=== PATIENT | male | born 1940 | race Caucasian/White ===

== ENCOUNTER 2023-10-06 10:12 | Outpatient (CLI) | payer OTHER, SELFPAY | END 2023-10-06 10:13 | disposition home or self-care (01) | PROVIDERS: PCP Family Medicine; Visit Provider Family Medicine | DX: M54.16 Radiculopathy, lumbar region (principal); M51.36 Other intervertebral disc degeneration, lumbar region | CPT/HCPCS: 62323; J0702; Q9966 ==

== ENCOUNTER 2024-04-23 09:12 | Emergency (ER) | payer OTHER, SELFPAY ==
[2024-04-23 09:25] VITALS: BP 157/72; PULSE 73; RESP 18; TEMP 36.6; O2SAT 96; BMI 25.9
--- NOTE | 2024-04-23 09:43 | ED.GENADULT ---
HPI - General Adult General Time Seen by Provider: 09:43 Date Seen: 04/23/24 Chief complaint: Cough Stated complaint: Cough, congestion Time Seen by Provider: 04/23/24 09:42 Source: patient and RN notes reviewed Mode of arrival: ambulatory Limitations: no limitations History of Present Illness HPI narrative: This 83-year-old male is coming into the ER with concern of ongoing respiratory symptoms. He notes he has been sick for about 3 weeks. He has had nasal congestion cough and occasional left-sided facial numbness that comes and goes. Symptoms have been present for about 2 weeks. He thinks he has a sinus infection. He went to a different hospital 2 weeks ago, took an antibiotic but did not clear it. He does not remember what the antibiotic was. He has hip pain, chronic back pain, diabetes, COPD, bladder cancer. He has a remote history of smoking. No noted fevers or chills. His medications are reviewed. Related Data Home Medications ?Medication ?Instructions ?Recorded ?Confirmed albuterol sulfate 90 mcg/actuation 1 - 2 puff inhalation Q4H PRN 04/23/24 04/23/24 aerosol inhaler wheezing atorvastatin 40 mg tablet 40 mg PO QPM 04/23/24 04/23/24 benzonatate 100 mg capsule 100 mg PO 3XD PRN cough 04/23/24 04/23/24 buspirone 5 mg tablet 5 mg PO 3XD 04/23/24 04/23/24 finasteride 5 mg tablet 5 mg PO QAM 04/23/24 04/23/24 isosorbide mononitrate 30 mg 30 mg PO DAILY 04/23/24 04/23/24 tablet,extended release 24 hr metoprolol succinate 25 mg 25 mg PO DAILY 04/23/24 04/23/24 tablet,extended release 24 hr oxycodone 10 mg tablet mg PO 04/23/24 trazodone 100 mg tablet 100 mg PO QPM 04/23/24 04/23/24 Allergies Allergy/AdvReac Type Severity Reaction Status Date / Time Penicillins Allergy Verified 04/23/24 09:31 Review of Systems Status of ROS: Reports: 6 or more systems reviewed and unremarkable except as noted in History and below PFSH PFSH Social History Non-prescribed substance use: denies use Exam Const: Vital Signs, click to edit/add: Vital Signs - 24 hr 04/23/24 09:25 Temperature 97.8 F Pulse Rate [Right Pulse Oximeter] 73 Respiratory Rate 18 Blood Pressure [Ri ght Upper Arm] 157/72 H Pulse Oximetry 96 Oxygen Delivery Me thod Room Air This 83-year-old male is alert, interactive, no apparent distress. Pupils equal round reactive to light, sclera clear, symmetrical facial function. Speech is normal. Anterior nares normal. Neck is supple, no adenopathy, no thyromegaly masses or nodules. Lungs are clear, good air entry, no wheeze or crackles. CV regular rate and rhythm, no murmur, normal S1-S2, no S3-S4. Abdomen peers soft, nontender, no organomegaly or masses. No lower extremity edema. Patient is ambulatory into the ED using a cane. Did observe him going to the bathroom. Documenting provider has reviewed patient's vital signs: yes Course Course ED Course: Reviewed with patient that we would proceed with head CT, will be able to see majority of the sinuses on head CT imaging. Will get basic labs. Do think we should look at a chest x-ray as well. Sinusitis, respiratory infection including pneumonia will be further evaluated with the imaging. Patient is in agreement with this plan. Vital Signs Vital signs: Initial Vital Signs Temperature 97.8 F 04/23/24 09:25 Temperature Source Temporal Artery Scan 04/23/24 09:25 Pulse Rate 73 04/23/24 09:25 Respiratory Rate 18 04/23/24 09:25 Blood Pressure 157/72 H 04/23/24 09:25 Blood Pressure Mean 100 04/23/24 09:25 Blood Pressure Position Sitting 04/23/24 09:25 Pulse Oximetry 96 04/23/24 09:25 Oxygen Delivery Method Room Air 04/23/24 09:25 Vital Signs Temperature 97.8 F 04/23/24 09:25 Pulse Rate 73 04/23/24 09:25 Respiratory Rate 18 04/23/24 09:25 Blood Pressure 157/72 H 04/23/24 09:25 Pulse Oximetry 96 04/23/24 09:25 Oxygen Delivery Method Room Air 04/23/24 09:25 Temperature 97.8 F 04/23/24 09:25 Pulse Rate 73 04/23/24 09:25 Respiratory Rate 18 04/23/24 09:25 Blood Pressure 157/72 H 04/23/24 09:25 Pulse Oximetry 96 04/23/24 09:25 Oxygen Delivery Method Room Air 04/23/24 09:25 Medical Decision Making Lab Data Lab results reviewed: Yes I reviewed the patient's lab results Labs: Lab Results 04/23/24 Range/Units 10:41 WBC 5.15 (4.50-11.00) K/uL RBC 3.85 L (4.30-5.90) m/uL Hgb 12.4 L (13.5-17.5) gm/dL Hct 37.2 (37.0-53.0) % MCV 97 (80-100) fL MCH 32 (26-34) pg MCHC 33 (32-36) gm/dL RDW Coeff of Laci 12.7 (11.5-15.5) % Plt Count 169 (140-440) K/uL Neut % (Auto) 64.7 (42.0-72.0) % Lymph % (Auto) 16.7 L (20-44) % Miner % (Auto) 15.1 H (0.0-11.0) % Eos % (Auto) 2.3 (0.0-7.0) % Baso % (Auto) 1.0 (0.0-3.0) % Neut # (Auto) 3.33 (1.7-7.0) K/uL Lymph # (Auto) 0.90 (0.90-2.90) K/uL Miner # (Auto) 0.80 (0.00-0.90) K/UL Eos # (Auto) 0.12 (0.00-0.50) K/uL Baso # (Auto) 0.05 (0.00-0.30) K/uL Abs Immat Gran (auto) 0.01 (0.00-0.30) K/uL Imm/Tot Granulo (auto) 0.2 % Sodium 138 (135-149) mmol/L Potassium 4.2 (3.6-5.1) mmol/L Chloride 108 (96-114) mmol/L Carbon Dioxide 24 (20-32) mmol/L Anion Gap 6 L (7-15) mEq/L BUN 14 (7-30) mg/dL Creatinine 1.0 (0.5-1.5) mg/dL Estimated Creat Clear 60.66 Estimated GFR 75 ml/min Glucose 112 (60-115) mg/dL Calcium 8.8 (8.4-10.6) mg/dL C-Reactive Protein < 0.5 L (0.5-1.0) mg/dL Imaging Data CT scan - head: Attestation: I have reviewed the pertinent imaging results. Radiologist's impression: Patient: [facility] Facility:?[facility] Patient ID:?[id number] Site Patient ID:?[id number]. Site :?[id number] Study:?CT-Head WITHOUT-04/23/2024 10:20:26 AM Ordering Physician:Senait Santos Final Report: Indication: Headache intermittent left facial numbness Technique: Noncontrast head CT Comparison: No comparison Findings: Mild generalized parenchymal volume loss periventricular hypo lucencies likely reflecting chronic small vessel ischemic change. Axial noncontrast images through the brain parenchyma demonstrates no acute intracranial hemorrhage or mass. No midline shift. No abnormal extra-axial air or fluid collections are seen. Possible left posterior scalp contusion skull and scalp are otherwise unremarkable. Impression: No acute intracranial hemorrhage or mass. Possible left posterior scalp contusion Left facial numbness Please note that all CT scans at this facility use dose modulation, iterative reconstruction, and/or weight-based dosing when appropriate to reduce radiation dose to as low as reasonably achievable. Dictated by Rosette Kumari MD @ 04/23/2024 10:35:39 AM (Electronic Signature) Chest x-ray: Attestation: I have reviewed the pertinent imaging results. Radiologist's impression: Patient: [facility] Facility:?[facility] Patient ID:?[id number] Site Patient ID:?[id number]. Site :?[id number] Study:?XRay-Chest 2 VIEW-04/23/2024 10:21:41 AM Ordering Physician:Senait Santos Final Report: INDICATION: Cough. TECHNIQUE: Chest 2 views. COMPARISON: 10/03/2014. FINDINGS: No pneumothorax or pleural effusion. Lungs are clear. Median sternotomy and CABG. Aortic atherosclerosis. Cardiac and mediastinal contours are within normal limits. Upper abdomen and osseous structures as imaged show no acute abnormality. IMPRESSION: No evidence of acute cardiopulmonary disease. Dictated by Randy Brooke MD @ 04/23/2024 10:35:05 AM (Electronic Signature) Discharge Plan Discharge Clinical Impression: Cough Qualifiers: Cough type: unspecified Qualified Code(s): R05.9 - Cough, unspecified Patient Disposition: Home, Self-Care Condition: Stable Instructions: Acute Cough (ED) Additional Instructions: Need to follow-up with your primary care provider within the next week for recheck. Your sinuses appear clear, head CT showing no concerning change on it, chest x-ray was clear. Labs are all reassuring. Antibiotics are not indicated. She after respiratory infections, whether viral or bacterial, patients can have underlying damage from these infections that just take time to heal. This can cause the coughing and the respiratory symptoms that linger. I would anticipate that your cough and symptoms improve over the weeks to come. If you do develop worsening cough, fever, shortness of breath or other concerns, do recommend re-evaluation. Activity Level: Activity as Tolerated Prescriptions: No Action atorvastatin 40 mg tablet 40 mg PO QPM buspirone 5 mg tablet 5 mg PO 3XD isosorbide mononitrate 30 mg tablet extended release 24 hr 30 mg PO DAILY trazodone 100 mg tablet 100 mg PO QPM benzonatate 100 mg capsule 100 mg PO 3XD PRN (Reason: cough) metoprolol succinate 25 mg tablet extended release 24 hr 25 mg PO DAILY albuterol sulfate 90 mcg/actuation HFA aerosol inhaler 1 - 2 puff INHALATION Q4H PRN (Reason: wheezing) finasteride 5 mg tablet 5 mg PO QAM oxycodone 10 mg tablet PO Follow Up/Referrals: Saqib Horowitz MD [Primary Care Provider] - Stand Alone Forms: [employer] Info Instructions
--- NOTE | 2024-04-23 09:54 | CRLHL7_ITS ---
For Patients: As a result of the Cures Act, medical imaging exams and procedure reports are released immediately into your electronic medical record. You may view this report before your referring provider. If you have questions, please contact your health care provider. INDICATION: Cough. TECHNIQUE: Chest 2 views. COMPARISON: 10/03/2014. FINDINGS: No pneumothorax or pleural effusion. Lungs are clear. Median sternotomy and CABG. Aortic atherosclerosis. Cardiac and mediastinal contours are within normal limits. Upper abdomen and osseous structures as imaged show no acute abnormality. IMPRESSION: No evidence of acute cardiopulmonary disease. Dictated by Randy Brooke MD @ 04/23/2024 10:35:05 AM (Electronically Signed)
--- NOTE | 2024-04-23 09:54 | CRLHL7_ITS ---
For Patients: As a result of the Century Cures Act, medical imaging exams and procedure reports are released immediately into your electronic medical record. You may view this report before your referring provider. If you have questions, please contact your health care provider. Indication: Headache intermittent left facial numbness Technique: Noncontrast head CT Comparison: No comparison Findings: Mild generalized parenchymal volume loss periventricular hypo lucencies likely reflecting chronic small vessel ischemic change. Axial noncontrast images through the brain parenchyma demonstrates no acute intracranial hemorrhage or mass. No midline shift. No abnormal extra-axial air or fluid collections are seen. Possible left posterior scalp contusion skull and scalp are otherwise unremarkable. Impression: No acute intracranial hemorrhage or mass. Possible left posterior scalp contusion Left facial numbness Please note that all CT scans at this facility use dose modulation, iterative reconstruction, and/or weight-based dosing when appropriate to reduce radiation dose to as low as reasonably achievable. Dictated by Rosette Kumari MD @ 04/23/2024 10:35:39 AM (Electronically Signed)
--- OUTSIDE RECORDS SUMMARY | 2024-04-23 10:01 | XMS_ITS | Continuity of Care Document ---
Author Organization [facility] Address [address] [address] [place] [address] Phone Care Team Providers Care Electroneurodiagnostic Technician Name Role Phone Salima Castle MD Unavailable Unavailable Procedures Procedure Date Init Inpt Cons New/est Mod-hi 2 Advance Directives Directive Yes / No Effective Date File Name No Information Encounters Encounter Description Practice Location Reason(s) For Visit Diagnoses Date Provider Providers Copied on Encounter [facility], [address] [address], [place], [place], [id number], [place] tel:[phone] [facility] No Information Tin Borrego. [address] [address], [place], [place], [id number], [place]. tel:[phone] Init Inpt [place] New/est Mod-hi [facility], [address] [address], [place], [place], [id number], [place] tel:[phone] [facility] No Information Tin Borrego. [address], [id number], [place]. tel:[phone] Referring Provider: Randy Granda, [facility] [place], [address]. tel:[phone] Family History Family Member Type Diagnosis Age At Onset No Information Payers Payer name Insurance type Covered alliance party ID Authoriza tion(s) No Information Social History Type Description Quantity Date Captured Comments Sex Male Smoking Status No Information Chief Complaint And Reason For Visit No Information Reason For Referral Reason For Referral No Information History Of Present Illness Encounter Date Complaint History Of Prese nt Illness No Information Functional Status Date Functional Assessmen t No Information Instructions Date Instruction Additional Infor mation No Information Assessments Type Assessment Date No Information Patient Care Teams Name Effective Dates (start - stop) Status Members No Information
--- OUTSIDE RECORDS SUMMARY | 2024-04-23 10:01 | XMS_ITS | Continuity of Care Document ---
Author Organization [facility] Address [address] [place] [address] Phone Care Team Providers Care Clock Maker Name Role Phone Neo Watt MD Unavailable Unavailable Procedures Procedure Date Office/outpatient visit,est, low 2006 Office/outpatient visit,est, low 2006 Office/outpatient visit,est, low 2006 X-ray exam lwr spine, min 4 views Advance Directives Directive Yes / No Effective Date File Name No Information Encounters Encounter Description Practice Location Reason(s) For Visit Diagnoses Date Provider Providers Copied on Encounter [facility], [address] [place] [address], [facility], tel:[phone] [employer] No Information Shukri Larson. [facility], [address] [place] [address], [address], [place], [place], [id number] , . tel:[phone] Office/outpat ient visit,est, low [facility], [address] [place], [place] [address], [place], [place], [facility], tel:[phone] [employer] No Information Mely Ellis. [facility], [address], [place], [id number] , . tel:[phone] Referring Provider: Caleb Boone, [facility] [address], [place], [address] . tel:[phone] Office/outpat ient visit,est, low [facility], [address], [place], [place], [facility], tel:[phone] [employer] No Information Mely [facility], [address], [place], [place], [id number] , . tel:[phone] Referring Provider: Caleb Boone, [facility] [address] [place] [address] [address], [place], [address] . tel:[phone] Office/outpat ient visit,est, low [facility], [address] [place], [place] [address], [place], [facility], tel:[phone] [employer] No Information Mely [facility], [address], [place], [place], [id number] , . tel:[phone] Referring Provider: Caleb Boone, [facility] [address], [place], [address] . tel:[phone] Family History Family Member Type Diagnosis Age At Onset No Information Payers Payer name Insurance type Covered constitution party ID Authoriza tion(s) No Information Social [...]
--- OUTSIDE RECORDS SUMMARY | 2024-04-23 10:01 | XMS_ITS | Data Portability ---
Author Organization [facility] Address [address] [place] [address] Care Team Providers Care [employer] Name Role Phone [facility] Primary Care Provider Assessment No assessment recorded. Plan of Treatment Reminders Order Date Submit Date Provider Last Modified By Organization Details Last Modified Time Details Appointments None recorded. Lab urinalysis , dipstick 2022 023 [email or web address] [facility], [address], [place], [address], 3 17:36:45 culture, urine 2022 023 [facility], [address], [address], [place], [address], 3 12:19:57 urinalysis , dipstick 2022 023 [email or web address] [facility], [address], [place], [address], 3 13:03:33 urinalysis , dipstick 2022 023 [email or web address] [facility], [address], [place], [address], 3 11:59:30 prostate specific Ag, serum or plasma 2023 024 [facility], [address], [address], [place], [address], 4 11:55:21 urinalysis , dipstick 2023 024 [email or web address] [facility], [address], [place], [address], 4 13:56:05 culture, urine 2023 024 [facility], [address], [address], [place], [address], 11:40:13 Referral None recorded. Procedures cystoscopy (PROC) 2023 024 [email or web address] Not available 10:21:32 Surgeries None recorded. Imaging None recorded. Medication Orders None recorded. Patient TargetsNo targets recorded. Patient Instructions Encounter Date Encounter Id Patient Instructions Last Modified By Organization Details Last Modified Time 11/20/2022 [id number] Return next week for his next instillation [email or web address] Not available 11/20/2022 17:43:09 12/04/2022 [id number] Patient to follo w up next week for next instillation [email or web address] Not available 12/04/2022 13:06:27 12/11/2022 [id number] Patient to retur n next week for BCG #6 [email or web address] Not available 12/11/2022 11:59:55 Reason for Referral None Reported. Results Created Date Observation Date Name Description Value Unit Range Abnormal Flag Note LastModifiedBy Organization Detail LastModifiedTime 11/07/1911/06/2022 urina lysis , dipst ick pH-Status 5.5 Not Available [facility] [address], [place], [address], 11/06/2022 12:07:11 11/07/19 23 11/06/2022 urina lysis , dipst ick Nitrates-Sta tus negati ve Not Available [facility] [address], [place], [address], 11/06/2022 12:07:11 11/07/19 23 11/06/2022 urina lysis , dipst ick Blood-Status Large Not Available [facility] [address], [place], [address], 11/06/2022 12:07:11 11/07/19 23 11/06/2022 urina lysis , dipst ick Leuko-Status Small Not Available [facility] [address], [place], [address], 11/06/2022 12:07:11 11/07/19 23 11/06/2022 urina lysis , dipst ick Specimen Type Voided Not Available [facility] [address], [place], [address], 11/06/2022 12:07:11 11/14/19 23 11/13/2022 urina lysis , dipst ick pH-Status 5.5 Not Available [facility] [address], [place], [address], 11/13/2022 11:49:27 11/14/19 23 11/13/2022 urina lysis , dipst ick Nitrates-Sta tus negati ve Not Available [facility] [address], [place], [address], 11/13/2022 11:49:27 11/14/19 23 11/13/2022 urina lysis , dipst ick Blood-Status Trace Not Available [facility] [address], [place], [address], 11/13/2022 11:49:27 11/14/19 23 11/13/2022 urina lysis , dipst ick Leuko-Status Small Not Available [facility] [address], [place], [address], 11/13/2022 11:49:27 11/14/19 23 11/13/2022 urina lysis , dipst ick Specimen Type Voided Not Available [facility] [address], [place], [address], 11/13/2022 11:49:27 11/21/19 23 11/20/2022 urina lysis , dipst ick Blood-Status Large Not Available [facility] [address], [place], [address], 11/20/2022 17:34:52 11/21/19 23 11/20/2022 urina lysis , dipst ick Leuko-Status Small Not Available [facility] [address], [place], [address], 11/20/2022 17:34:52 12/05/19 23 12/04/2022 URINE CULTU RE final report MICROB IOLOGY RESULT S SOURC E Void KNOWN ALLER GIES Penic illin s TREAT MENT none MEDIA PLATE D AT: Media plate d on 023 @ 5:15 PM RESUL T No Growt h This lab resul t is being provi ded to you and your provi barbara at the same time in compl iance with the Centu ry Cures Act. Your provi barbara may not have had time to revie w and make recom menda tions based on the resul t. Pleas e allow up to one week for provi barbara revie w. Not Available [facility] [address], [place], [address], 12/06/2022 12:19:57 12/05/19 23 12/04/2022 urina lysis , dipst ick Glucose-Stat us 100 Not Available [facility] [address], [place], [address], 12/04/2022 12:59:43 12/05/19 23 12/04/2022 urina lysis , dipst ick Bilirubin-St atus Small Not Available [facility] [address], [place], [address], 12/04/2022 12:59:43 12/05/19 23 12/04/2022 urina lysis , dipst ick Ketones-Stat us 5 Not Available [facility] [address], [place], [address], 12/04/2022 12:59:43 12/05/19 23 12/04/2022 urina lysis , dipst ick Protein-Stat us >=9.0 Not Available [facility] [address], [place], [address], 12/04/2022 12:59:43 12/05/19 23 12/04/2022 urina lysis , dipst ick Blood-Status Large Not Available [facility] [address], [place], [address], 12/04/2022 12:59:43 12/05/19 23 12/04/2022 urina lysis , dipst ick Leuko-Status Trace Not Available [facility] [address], [place], [address], 12/04/2022 12:59:43 12/12/19 23 12/11/2022 urina lysis , dipst ick Color-Status Yellow Not Available [facility] [address], [place], [address], 12/11/2022 11:56:24 12/12/19 23 12/11/2022 urina lysis , dipst ick Clarity-Stat us Clear Not Available [facility] [address], [place], [address], 12/11/2022 11:56:24 12/12/19 23 12/11/2022 urina lysis , dipst ick Glucose-Stat us Negati ve Not Available [facility] [address], [place], [address], 12/11/2022 11:56:24 12/12/19 23 12/11/2022 urina lysis , dipst ick Bilirubin-St atus Negati ve Not Available [facility] [address], [place], [address], 12/11/2022 11:56:24 12/12/19 23 12/11/2022 urina lysis , dipst ick Ketones-Stat us Negati ve Not Available [facility] [address], [place], [address], 12/11/2022 11:56:24 12/12/19 23 12/11/2022 urina lysis , dipst ick Sp [place]-Stat us 1.020 Not Available [facility] [address], [place], [address], 12/11/2022 11:56:24 12/12/19 23 12/11/2022 urina lysis , dipst ick pH-Status 5.5 Not Available [facility] [address], [place], [address], 12/11/2022 11:56:24 12/12/19 23 12/11/2022 urina lysis , dipst ick Urobilinogen -Status 0.2 Not Available [facility] [address], [place], [address], 12/11/2022 11:56:24 12/12/19 23 12/11/2022 urina lysis , dipst ick Nitrates-Sta tus negati ve Not Available [facility] [address], [place], [address], 12/11/2022 11:56:24 12/12/19 23 12/11/2022 urina lysis , dipst ick Blood-Status Large Not Available [facility] [address], [place], [address], 12/11/2022 11:56:24 12/12/19 23 12/11/2022 urina lysis , dipst ick Leuko-Status Small Not Available [facility] [address], [place], [address], 12/11/2022 11:56:24 12/12/19 23 12/11/2022 urina lysis , dipst ick Specimen Type Voided Not Available [facility] [address], [place], [address], 12/11/2022 11:56:24 12/12/19 23 12/11/2022 urina lysis , dipst ick Performed by Marcos willson RN Not Available [facility] [address], [place], [address], 12/11/2022 11:56:24 12/19/19 23 12/18/2022 URINE CULTU RE final report MICROB IOLOGY RESULT S SOURC E Void KNOWN ALLER GIES penic illin TREAT MENT none MEDIA PLATE D AT: Media plate d on 2022 @ 4:24 PM COLON Y COUNT 10,00 0 cfu/m l-20, 000 cfu/m l RESUL T Mixed Growt h,Mul tiple Gram Posit roldan Morph ologi c Types ,No Furth er Carl p This lab resul t is being provi ded to you and your provi barbara at the same time in compl iance with the Centu ry Cures Act. Your provi barbara may not have had time to revie w and make recom menda tions based on the resul t. Katarina e allow up to one week for provi barbara revie w. Not Available [facility] [address], [place], [address], 12/20/2022 11:23:09 12/19/19 23 12/18/2022 urina lysis , dipst ick Color-Status Mimbres Not Available [facility] [address], [place], [address], 12/18/2022 13:03:00 12/19/19 23 12/18/2022 urina lysis , dipst ick Clarity-Stat us Clear Not Available [facility] [address], [place], [address], 12/18/2022 13:03:00 12/19/19 23 12/18/2022 urina lysis , dipst ick Glucose-Stat us Negati ve Not Available [facility] [address], [place], [address], 12/18/2022 13:03:00 12/19/19 23 12/18/2022 urina lysis , dipst ick Bilirubin-St atus Small Not Available [facility] [address], [place], [address], 12/18/2022 13:03:00 12/19/19 23 12/18/2022 urina lysis , dipst ick Sp [place]-Stat us 1.025 Not Available [facility] [address], [place], [address], 12/18/2022 13:03:00 12/19/19 23 12/18/2022 urina lysis , dipst ick pH-Status 5.0 Not Available [facility] [address], [place], [address], 12/18/2022 13:03:00 12/19/19 23 12/18/2022 urina lysis , dipst ick Urobilinogen -Status 0.2 Not Available [facility] [address], [place], [address], 12/18/2022 13:03:00 12/19/19 23 12/18/2022 urina lysis , dipst ick Nitrates-Sta tus positi ve Not Available [facility] [address], [place], [address], 12/18/2022 13:03:00 12/19/19 23 12/18/2022 urina lysis , dipst ick Blood-Status Large Not Available [facility] [address], [place], [address], 12/18/2022 13:03:00 12/19/19 23 12/18/2022 urina lysis , dipst ick Leuko-Status Small Not Available [facility] [address], [place], [address], 12/18/2022 13:03:00 12/19/19 23 12/18/2022 urina lysis , dipst ick Specimen Type Voided Not Available [facility] [address], [place], [address], 12/18/2022 13:03:00 12/19/19 23 12/18/2022 urina lysis , dipst ick Performed by Marcos willson RN Not Available [facility] [address], [place], [address], 12/18/2022 13:03:00 10/19/19 24 10/19/2023 PSA, TOTAL , SCREE N PSA, total 0.72 NG/mL 0.00-4 .00 This lab resul t is being provi ded to you and your provi barbara at the same time in compl iance with the 21st Centu ry Cures Act. Your provi barbara may not have had time to revie w and make recom menda tions based on the resul t. Katarina sandy allow up to one week for provi barbara revie w. Not Available [facility] [address], [place], [address], 10/20/2023 11:55:21 10/19/19 24 10/19/2023 URINE CULTU RE final report MICROB IOLOGY RESULT S SOURC E Void KNOWN ALLER GIES penic illin TREAT MENT none MEDIA PLATE D AT: Media plate d on 2023 @ 4:02 PM RESUL T No Growt h This lab resul t is being provi ded to you and your provi barbara at the same time in compl iance with the Centu ry Cures Act. Your provi barbara may not have had time to revie w and make recom menda tions based on the resul t. Pleas e allow up to one week for provi barbara revie w. Not Available [facility] [address], [place], [address], 10/21/2023 11:40:13 10/19/19 24 10/19/2023 urina lysis , dipst ick Color-Status Yellow Not Available [facility] [address], [place], [address], 10/19/2023 12:37:34 10/19/19 24 10/19/2023 urina lysis , dipst ick pH-Status 5.5 Not Available [facility] [address], [place], [address], 10/19/2023 12:37:34 10/19/19 24 10/19/2023 urina lysis , dipst ick Nitrates-Sta tus negati ve Not Available [facility] [address], [place], [address], 10/19/2023 12:37:34 10/19/19 24 10/19/2023 urina lysis , dipst ick Blood-Status Negati ve Not Available [facility] [address], [place], [address], 10/19/2023 12:37:34 10/19/19 24 10/19/2023 urina lysis , dipst ick Leuko-Status Trace Not Available [facility] [address], [place], [address], 10/19/2023 12:37:34 Result Notes None recorded. Problems Name Problem SNOMED Code Status Onset Date Resolution Date Notes Provider Name and Address Organization Details Recorded Time Malignant neoplasm of urinary bladder 678057099 Active 020 Omayra Sosa lelo, [facility] 16:10:32 Problem Notes None recorded. Procedures Surgical History Date Name Laterality Status Provider Name and Address Organization Details Recorded Time 03/30/20 24 [facility]Kylee [facility]oll[facility] 03/21/2024 16:34:13 03/30/20 24 Sulfa post Cysto active [facility] JasonMargarito hollins [facility] 03/21/2024 16:34:15 03/30/20 24 Cytology active [facility]e [facility] 03/21/2024 16:34:45 03/30/20 24 Blood Draw/PICKUP DRIVER/PSA RESULTS active [facility] JasonMargarito hollins [facility] 03/21/2024 16:35:01 10/19/19 24 Cystoscopy- male completed Cesar Daly MD [address], [place], [address], [facility] 10/19/2023 13:54:02 10/19/19 24 Sulfa post Cysto completed Huyen Santos [facility] 10/19/2023 12:39:22 12/19/19 23 BCG Full Dose Tx 50mg cancelled Becky Hinojosa [facility] 12/18/2022 13:02:55 12/12/19 23 BCG Full Dose Tx 50mg completed Becky Hinojosa [facility] 12/11/2022 11:56:17 12/05/19 23 BCG Full Dose Tx 50mg completed Clarice Naranjo [facility] 12/04/2022 12:59:37 11/21/19 23 BCG Full Dose Tx 50mg completed Clarice Nraanjo [facility] 11/20/2022 17:40:06 11/14/19 23 BCG Full Dose Tx 50mg completed [facility] 11/13/2022 11:49:12 11/07/19 23 BCG Full Dose Tx 50mg completed Ely Stratton [facility] 11/06/2022 12:06:58 09/23/19 23 Bladder Scan completed Sera Crowley [facility] 09/23/2022 13:50:56 07/03/20 20 Cystoscopy- male completed Cesar Daly MD [address] [place] [address],[address], [address], [facility] 07/05/2020 09:10:35 05/17/20 20 BCG Full Dose Tx 50mg completed Vic Kwok [facility] 05/17/2020 12:35:47 05/10/20 20 BCG Full Dose Tx 50mg completed Vic Kwok [facility] 05/10/2020 12:33:48 05/03/20 20 BCG Full Dose Tx 50mg completed Vic Kwok [facility] 05/03/2020 12:41:30 04/26/20 20 BCG Full Dose Tx 50mg completed Vic Kwok [facility] 04/26/2020 12:46:29 04/19/20 20 BCG Full Dose Tx 50mg completed Vic Kwok [facility] 04/19/2020 13:19:52 04/12/20 20 BCG Full Dose Tx 50mg completed Omayra Sosa [facility] 04/12/2020 16:15:22 08/03/19 12 Colonoscopy completed Cesar Daly MD [address] [place] [address],[address], [address], [facility] 07/03/2020 15:50:00 procedure on urinary bladder completed Robb Gomez [facility] 07/03/2020 15:28:56 operation on lumbar spine completed Cesar Daly MD [address] [place] [address],[address], [address], [facility] 07/03/2020 15:50:12 complete repair of rotator cuff completed Cesar Daly MD [address] [place] [address],[address], [address], [facility] 07/03/2020 15:50:30 Imaging Results None recorded. Procedure Notes None recorded. Medical Equipment None Reported. Allergies Allergen ID Allergen Name Allergen Category Reaction Reaction Severity Criticality Documentation Date Start Date Code Code System Note Provider Name and Address Organization Details Recorded Time 427862 Medicinal product containin g penicilli n and acting as antibacte rial agent (product) medicatio n Not available Not available Not available 07/03/2020 99622 05 SNOMED Cesar Daly MD [address] [place] [address], [address], [facility] 0 15:51:47 Medications Name Sig Start Date Stop Date Status Note LastModified by Organization Details LastModified Time depend undr lg/xl mis kimb FOR HOME USE NEEDED* active Not Available Not Available No t Available hpa lanolin cre lans Apply topically to affected area(s) each time if needed for Dry Skin. active Not Available Not Available No t Available dep fit-flex mis large active Not Available Not Available No t Available cyclobenzap rine 10 mg tablet TAKE ONE TABLET BY MOUTH THREE TIMES DAILY NEEDED FOR MUSCLE SPASM* active Not Available Not Available No t Available atorvastati n 40 mg tablet TAKE 1 TABLET BY MOUTH AT BEDTIME* active Not Available Not Available No t Available buspirone 5 mg tablet TAKE ONE TABLET BY MOUTH THREE TIMES DAILY* active Not Available Not Available No t Available triamcinolo ne acetonide 0.5 % topical cream Apply topically to affected area(s) three times daily* active Not Available Not Available No t Available tizanidine 4 mg tablet TAKE ONE TABLET BY MOUTH EVERY EIGHT HOURS NEEDED FOR MUSCLE SPASM 10/15 completed Not Available Not Available Not Available sulfamethox azole 400 mg-trimetho prim 80 mg tablet TAKE 1 TABLET BY MOUTH EVERY 12 HOURS FOR 14 DAYS 08/20 completed Not Available Not Available Not Available phenazopyri dine 200 mg tablet TAKE ONE TABLET BY MOUTH THREE TIMES DAILY AFTER MEALS FOR 3 DAYS 10/15 completed Not Available Not Available Not Available isosorbide mononitrate ER 30 mg tablet,exte nded release 24 hr TAKE 1 TABLET BY MOUTH ONE TIME DAILY, DO NOT TAKE IF SYSTOLIC BLOOD PRESSURE IS LESS THAN 110* active Not Available Not Available No t Available clobetasol 0.05 % topical cream Apply (1.5gm) to affected areas on chest and back twice daily for 2 weeks.Channing e 2 weeks off. Repeat until resolved. * active Not Available Not Available No t Available ciprofloxac in 500 mg tablet TAKE 1 TABLET BY MOUTH EVERY 12 HOURS FOR 14 DAYS 08/20 completed Not Available Not Available Not Available sulfamethox azole 800 mg-trimetho prim 160 mg tablet Take 1 Tablet by mouth one time for 1 dose. 08/20 completed Not Available Not Available Not Available omeprazole 40 mg capsule,del ayed release TAKE 1 CAPSULE BY MOUTH TWICE DAILY 30-60 MINUTES BEFORE A MEAL/FOOD .* active Not Available Not Available No t Available ketorolac 0.5 % eye drops INSTILL ONE DROP INTO RIGHT EYE FOUR TIMES DAILY; START 4 HOURS AFTER SURGERY, USE UNTIL GONE, DON'T EXCEED 3 WEEKS 08/20 completed Not Available Not Available Not Available oxycodone-a cetaminophe n 5 mg-325 mg tablet TAKE ONE TABLET BY MOUTH EVERY SIX HOURS NEEDED FOR PAIN, MAX ACETAMINO PHEN DOSE IS 4,000MG IN 24 HOURS active Not Available Not Available No t Available famotidine 20 mg tablet Take 1 tablet by mouth 2 times daily. 10/15 completed Not Available Not Available Not Available prednisolon e acetate 1 % eye drops,suspe nsion INSTILL ONE DROP INTO RIGHT EYE FOUR TIMES DAILY; START 4 HOURS AFTER SURGERY, USE UNTIL GONE, DON'T EXCEED 3 WEEKS 08/20 completed Not Available Not Available Not Available DOK 100 mg capsule 10/15 completed Not Available Not Available Not Available tamsulosin 0.4 mg capsule Take 1 Capsule by mouth once daily after a meal.* active Not Available Not Available No t Available trazodone 100 mg tablet TAKE 1 TABLET BY MOUTH AT BEDTIME* active Not Available Not Available No t Available carboxymeth ylcellulose sodium 0.5 % eye drops INSTILL ONE DROP INTO BOTH EYES FOUR TIMES DAILY* active Not Available Not Available No t Available phenazopyri dine 100 mg tablet TAKE ONE TABLET BY MOUTH EVERY EIGHT HOURS NEEDED* active Not Available Not Available No t Available benzonatate 100 mg capsule TAKE ONE CAPSULE BY MOUTH THREE TIMES DAILY NEEDED FOR COUGH* active Not Available Not Available No t Available cephalexin 500 mg capsule Take 1 Capsule (500 mg) by mouth three times daily for 10 days. 10/15 completed Not Available Not Available Not Available pantoprazol e 40 mg tablet,benedicto yed release active Not Available Not Available Not Available ranitidine 150 mg tablet 10/15 completed Not Available Not Available Not Available nitroglycer in 0.[address] 1 TABLET UNDER THE TONGUE EVERY 5 MINUTES IF NEEDED FOR CHEST PAIN. IF NO RELIEF AFTER 3 DOSES, SEEK IMMEDIATE MEDICAL ATTENTION .* active Not Available Not Available No t Available gabapentin 100 mg capsule take 1 capsule by mouth every morning & 2 capsules every evening* active Not Available Not Available No t Available metoprolol succinate ER 25 mg tablet,exte nded release 24 hr TAKE 1 TABLET BY MOUTH ONE TIME DAILY* active Not Available Not Available No t Available loteprednol etabonate 0.5 % eye drops,suspe nsion INSTILL ONE DROP INTO EACH EYE THREE TIMES A DAY 10/15 completed Not Available Not Available Not Available cefuroxime axetil 500 mg tablet 08/20 completed Not Available Not Available Not Available polyethylen e glycol 3350 17 gram/dose oral powder active Not Available Not Available Not Available methylpredn isolone 4 mg tablets in a dose pack 08/20 completed Not Available Not Available Not Available cefdinir 300 mg capsule TAKE 1 CAPSULE BY MOUTH TWICE DAILY FOR 7 DAYS 08/20 completed Not Available Not Available Not Available clotrimazol e 1 % topical cream 10/15 completed Not Available Not Available Not Available finasteride 5 mg tablet TAKE ONE TABLET BY MOUTH EVERY MORNING* active Not Available Not Available No t Available brimonidine 0.15 % eye drops 10/15 completed Not Available Not Available Not Available loratadine 10 mg tablet TAKE 1 TABLET BY MOUTH ONE TIME DAILY* active Not Available Not Available No t Available trospium 20 mg tablet TAKE ONE TABLET BY MOUTH TWICE DAILY BEFORE MEALS active Not Available Not Available No t Available lactulose 10 gram/15 mL oral solution active Not Available Not Available Not Available Pharbetol 325 mg tablet TAKE ONE OR TWO TABLETS BY MOUTH EVERY SIX HOURS NEEDED FOR PAIN* active Not Available Not Available No t Available olopatadine 0.2 % eye drops 10/15 completed Not Available Not Available Not Available FeroSul 325 mg (65 mg iron) tablet TAKE ONE TABLET BY MOUTH TWICE A DAY WITH MEALS* active Not Available Not Available No t Available oxycodone 10 mg tablet TAKE 1 TO 1^ TABLETS BY MOUTH EVERY 4 HOURS IF NEEDED FOR PAIN* active Not Available Not Available No t Available Depend Underwear For Women Large USE AT HOME NEEDED* active Not Available Not Available No t Available gatifloxaci n 0.5 % eye drops INSTILL ONE DROP INTO RIGHT EYE FOUR TIMES DAILY; START 4 HOURS AFTER SURGERY, USE UNTIL GONE, DON'T EXCEED 3 WEEKS 08/20 completed Not Available Not Available Not Available OneTouch Verio test strips USE ONE STRIP TO TEST ONCE DAILY 10/15 completed Not Available Not Available Not Available Enemeez 283 mg/5 mL enema active Not Available Not Available Not Available Stimulant Laxative Plus 8.6 mg-50 mg tablet TAKE 2 TABLETS BY MOUTH TWICE DAILY* active Not Available Not Available No t Available Refresh Optive Jerry-3 (PF) 0.5 %-1 %-0.5 % eye drops in a dropperette INSTILL 1 DROP INTO BOTH EYES 4 TIMES DAILY 10/15 completed Not Available Not Available Not Available Fluad 2018- 65yr up(PF)45 mcg(15 mcgx3)/0.5 mL intramuscul ar syringe 10/15 completed Not Available Not Available Not Available Flublok Quad (PF) 180 mcg (45 mcg x 4)/0.5 mL IM syringe 10/15 completed Not Available Not Available Not Available Flowflex COVID-19 Antigen Home Test kit ADMINISTE R ONE TEST 10/15 completed Not Available Not Available Not Available Vitals Date Recorded Body height Provider Name an d Address Organization Details Last Updated DateTime 12/11/2022 177.8 cm eBcky Hinojosa [facility] 12/11/2022 11:54:45 Date Recorded Body height Provider Name an d Address Organization Details Last Updated DateTime 12/18/2022 177.8 cm Becky Hinojosa [facility] 12/18/2022 13:01:28 Date Recorded Body height Body mass index (BMI) Body weight Provider Name and Address Organization Details Last Updated DateTime 10/19/2023 177.8 cm 25.8 kg/m2 44203.63 g Huyen Santos [facility] 10/19/2023 12:36:29 Social History Question Answer Notes LastModified by Organizat ion Details LastModified Time Tobacco Smoking Status Former Smoker quit in Cesar Daly MD [address] [place] [address],[address], [address], [facility] 07/03/2020 15:50:45 What Was The Date Of Your Most Recent Tobacco Screening? 10/19/2023 [email or web address] Information not available 10/19/2023 Sex: Unknown Functional Status None recorded. Mental Status None recorded. Family History Relationship Description Onset Age of this Age Resolved Age Notes LastModified by Organization Details LastModified Time Father Family history of diabetes mellitus [email or web address] Not available 2019 15:50:59 Father Family history of cardiac disorder [email or web address] Not available 2019 15:51:06 Medical History Condition Response Other Y High Blood Pressure Y Cancer Y High Cholesterol Y Immunizations Vaccine Type Date Status Provider Name and Address Organization Details Recorded Time Influenza, high-dose, quadrivalent, PF [facility]03[facility]23 [facility] 12:36:35 COVID-19, mRNA, LNP-S, bivalent, PF, 50 mcg/0.5 mL or 25mcg/0.25 mL dose 10/21/2022 [facility]23 12:36:35 RSV, recombinant, protein subunit RSVpreF, adjuvant reconstituted, 0.5 mL, PF 04/24/2023 [facility]23 12:36:35 COVID-19, mRNA, LNP-S, PF, 50 mcg/0.5 mL 08/06/2023 [facility] 12:36:35 Pneumococcal conjugate PCV 13 06/26/2015 completed Cesar Daly MD [address] [place] [address],[address], [address], [facility] 10/15/2022 11:32:51 pneumococcal polysaccharide PPV23 11/05/2009 completed Cesar Daly MD [address] [place] [address],[address], [address], [facility] 10/15/2022 11:32:51 Influenza, adjuvanted, trivalent, PF 04/18/2019 completed Mona Brako null, [facility] 03/06/2023 10:01:31 Influenza, adjuvanted, trivalent, PF 04/22/2017 completed Mona Brako null, [facility] 03/06/2023 10:01:31 Influenza, recombinant, quadrivalent, PF 05/07/2020 completed Mona Brako null, [facility] 03/06/2023 10:01:31 zoster recombinant 09/28/2018 completed Mona Brako null, [facility] 03/06/2023 10:01:31 zoster recombinant 01/03/2019 completed Mona Brako null, [facility] 03/06/2023 10:01:31 Influenza, high-dose, quadrivalent, PF 05/20/2022 completed Mona Brako null, [facility] 03/06/2023 10:01:31 Influenza, adjuvanted, quadrivalent, PF 05/08/2021 completed Mona Brako null, [facility] 03/06/2023 10:01:31 COVID-19, mRNA, LNP-S, PF, 100 mcg/0.5mL dose or 50 mcg/0.25mL dose 09/27/2020 completed Monagayathri Ruizko null, [facility] 03/06/2023 10:01:31 COVID-19, mRNA, LNP-S, PF, 100 mcg/0.5mL dose or 50 mcg/0.25mL dose 10/26/2020 completed Mona Sarako null, [facility] 03/06/2023 10:01:31 COVID-19, mRNA, LNP-S, PF, 100 mcg/0.5mL dose or 50 mcg/0.25mL dose 11/15/2021 completed Mona Sarako null, [facility] 03/06/2023 10:01:31 COVID-19, mRNA, LNP-S, PF, 100 mcg/0.5mL dose or 50 mcg/0.25mL dose 05/27/2021 completed [facility] null, [facility] 03/06/2023 10:01:31 COVID-19, mRNA, LNP-S, PF, 100 mcg/0.5mL dose or 50 mcg/0.25mL dose 05/31/2021 completed Mona May null, [facility] 03/06/2023 10:01:31 zoster live 11/05/2009 completed Mona Sarako null, [facility] 03/06/2023 10:01:31 Influenza, high-dose, trivalent, PF 05/22/2014 completed Mona Brako null, [facility] 03/06/2023 10:01:31 Influenza, high-dose, trivalent, PF 06/05/2016 completed Mona Brako null, [facility] 03/06/2023 10:01:31 Influenza, high-dose, trivalent, PF 06/26/2015 completed Mona Brako null, [facility] 03/06/2023 10:01:31 Influenza, split virus, trivalent, preservative 04/13/2013 completed Mona Brako null, [facility] 03/06/2023 10:01:31 Influenza, split virus, trivalent, preservative 05/08/2009 completed Mona Brako null, [facility] 03/06/2023 10:01:31 Influenza, split virus, trivalent, preservative 05/24/2012 completed Mona Brako null, [facility] 03/06/2023 10:01:31 Influenza, split virus, trivalent, preservative 06/14/2008 completed Mona Brako null, [facility] 03/06/2023 10:01:31 Influenza, split virus, trivalent, PF 04/24/2010 completed Mona Brako null, [facility] 03/06/2023 10:01:31 Influenza, split virus, trivalent, PF 06/09/2011 completed Mona Brako null, [facility] 03/06/2023 10:01:31 Td (adult), 5 Lf tetanus toxoid, preservative free, adsorbed 12/18/2016 completed Mona Brako null, [facility] 03/06/2023 10:01:31 Influenza, split virus, quadrivalent, PF 03/31/2018 completed PIA [facility] 03/06/2023 10:01:31 Past Encounters Encounter ID Performer Location Encounter Start Date Encounter Closed Date Diagnosis/Indication Diagnosis SNOMED-CT Code Diagnosis ICD10 Code [id number] [facility] [address] [place] [address] 04/12/2020 11:45:28 04/12/2020 16:02:58 Malignant neoplasm of urinary bladder 506918042 C67.9 [id number] [facility] [address] [place] [address] 04/19/2020 12:11:01 04/19/2020 15:42:17 Malignant neoplasm of urinary bladder 101998287 C67.9 [id number] [facility] [address] [place] [address] 04/26/2020 12:14:03 04/26/2020 13:46:03 Malignant neoplasm of urinary bladder [id number] C67.[id number] [facility] [address] [place] [address] 05/03/2020 12:18:38 05/03/2020 14:23:52 Malignant neoplasm of urinary bladder 850873391 C67.9 [id number] [facility] [address] [place] [address] 05/10/2020 12:14:28 05/10/2020 14:37:13 Malignant neoplasm of urinary bladder 587138941 C67.[id number] [facility] [place] [address] 05/17/2020 12:06:01 05/17/2020 14:20:44 Malignant neoplasm of urinary bladder [id number] C67.[id number] [facility] [place] [address] 07/03/2020 15:09:17 07/03/2020 16:10:13 Malignant neoplasm of urinary bladder 075133106 C67.9 Lower urin cuco tract symptoms due to benign prostatic hypertrophy [id number] 9101 N40.1 Prostatitis 9302963 N41. 9 [id number] Lawson Garrido MD [facility] [address] [place] [address] 08/20/2022 14:54:37 08/23/2022 03:52:57 Malignant neoplasm of urinary bladder 650725349 C67.9 Lower urin cuco tract symptoms due to benign prostatic hypertrophy [id number] 9101 N40.1 Prostatitis 5760284 N41. 9 [id number] Cesar Daly MD [facility] [address] [place] [address] 09/23/2022 12:37:34 09/26/2022 10:27:12 Increased frequency of urination 436486637 R35.0 [id number] Cesar Daly MD [facility] [address] [place] [address] 10/15/2022 11:25:24 10/17/2022 13:33:13 Malignant neoplasm of urinary bladder 844753714 C67.9 Lower urin cuco tract symptoms due to benign prostatic hypertrophy 9734445709 9101 N40.1 [id number] Ely Ruelaskeydu [facility] [address] [place] [address] 11/06/2022 11:10:28 11/11/2022 18:25:31 Malignant neoplasm of urinary bladder [id number] C67.9 [id number] Ely Ruelaskeydu [facility] [address] [place] [address] 11/13/2022 11:11:35 11/14/2022 14:04:42 Malignant neoplasm of urinary bladder [id number] C67.9 [id number] Clarice Gneiting [facility] [address] [place] [address] 11/20/2022 15:02:17 11/24/2022 09:59:47 Malignant neoplasm of urinary bladder 763288729 C67.9 [id number] Cesar Daly MD [facility] [address] [place] [address] 11/27/2022 10:26:31 11/28/2022 11:10:14 [id number] Clarice Naranjo [facility] [address] [place] [address] 12/04/2022 11:07:58 12/09/2022 17:15:20 Malignant neoplasm of urinary bladder 781833659 C67.9 [id number] Becky Hinojosa [facility] [address] [place] [address] 12/11/2022 11:19:40 12/16/2022 21:27:24 Malignant neoplasm of urinary bladder 153867153 C67.9 [id number] Cesar Daly MD [facility] [address] [place] [address] 10/19/2023 12:21:36 10/20/2023 09:32:54 Malignant neoplasm of urinary bladder 366248338 C67.9 Lower urin cuco tract symptoms due to benign prostatic hypertrophy 9372099485 9101 N40.1 Health Concerns Section Related Observation LastModified by Organization Detai ls LastModified Time None Recorded Concern Status LastModified by Organization Details LastModified Time None Recorded Advance Directives Directive None Recorded Payers Encounter Date Sequence Insurance Name Policy Number Policy Palma Covered Member ID Palma Member ID Guarantor Name 11/20/2022 1 [employer] - DOS ON OR AFTER 19 (MEDICARE REPLACEMENT/ ADVANTAGE - PPO) [id number] 1 Scott aM [id number] Scott Ma 11/27/2022 1 [employer] - DOS ON OR AFTER 19 (MEDICARE REPLACEMENT/ ADVANTAGE - PPO) [id number] Scott Ma [id number] Scott Ma 12/04/2022 1 [employer] - DOS ON OR AFTER 19 (MEDICARE REPLACEMENT/ ADVANTAGE - PPO) [id number] Scott Ma [id number] Scott Ma 12/11/2022 1 [employer] - DOS ON OR AFTER 19 (MEDICARE REPLACEMENT/ ADVANTAGE - PPO) [id number] 1 Scott Ma [id number] Scott Ma 10/19/2023 1 [employer] - DOS ON OR AFTER 19 (MEDICARE REPLACEMENT/ ADVANTAGE - PPO) [id number] 1 Scott Ma [id number] Scott Du Ma Notes Date Note Type Note Provider Name and Address Organization Details Recorded Time 12/11/2022 text/html HPI Notes: 82 yo male presents for BCG BCG #5/6 [facility] [place] [facility] 12/11/2022 11:59:59 10/19/2023 text/html HPI Notes: 83 yo male dx with Bladder cancer ( Ta - high grade and CIS) - history of atrial fibrillation, diabetes mellitus, hypertension, coronary artery disease, dyslipidemia, GERD, gout, BPH. He underwent 6 weeks course of BCG - complete 05/17/20. He developed retention after Left COTY in April 2017. He denies prior prostate surgery - no family H/Op prostate cancer. His is on Flomax 0.4 mg daily and Finasteride 5 mg daily (started October 2017). - TUR-BT (01/10/20) - HG Ta - Right wall - BCG (6 weeks) - completed 05/17/20 - TUR-BT (09/12/22) - HG Ta tumors - + CIS (dome and floor) - BCG (6 weeks) - complete 12/11/22 - Cystoscopy with bladder biopsies - (07/17/23) - no cancer or CIS (chronic cystitis) - patient declined further BCG 10/15/22 - He presents for follow-up on Bladder cancer. He voids every 2-3 hours during the day and 2-3x/night. He notes urgency and occasional dysuria - denies hematuria. He is currently on Cephalexin for bronchitis. 10/19/23 - He presents for follow-up on Bladder cancer. He voids every 2-3 hours during the day and 2-3x/night. He reports an odor in his urine. - UA - neg blood, trace miah ____ PSA - 1.06 (01/28/06) - 0.73 (11/05/09) - 0.20 (12/06/18) - 0.93 (04/15/21) - 0.33 (12/02/21) Cesar Daly MD [address] [facility],[address], [place], [address], [facility] 10/19/2023 13:58:33
--- OUTSIDE RECORDS SUMMARY | 2024-04-23 10:01 | XMS_ITS | Clinical Summary ---
Author Organization [facility] Address [address] [place] [address]. 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 Active atorvastatin (LIPITOR) 40 MG tabletIndications :Dyslipidemia Take 1 tablet by mouth daily. 90 tablet 0 07/22/2012 Active nitroglycerin (NITROSTAT) 0.4 MG SL tabletIndications :CAD (coronary artery disease),Chest pain on exertion Place 1 tablet (0.4 mg) under the tongue every 5 minutes as needed for chest pain If you are still having symptoms after 3 doses (15 minutes) call 911. 25 tablet 0 11/22/2014 Active metoprolol (TOPROL-XL) 25 MG 24 hr tablet Take 25 mg by mouth daily Active isosorbide mononitrate (IMDUR) 30 MG 24 hr tablet Take 30 mg by mouth daily HOLD for SBP<110 Active ferrous sulfate (FEROSUL) 325 (65 Fe) MG tablet Take 325 mg by mouth 2 times daily 0800, 1999 Active Nutritional Supplements (ENSURE ACTIVE) LIQD Take 240 mLs by mouth daily Active acetaminophen (TYLENOL) 325 MG tablet Take 325-650 mg by mouth every 6 hours as needed for mild pain Active oxyCODONE IR (ROXICODONE) 10 MG tablet Take 10-15 mg by mouth every 4 hours as needed for severe pain Active gabapentin (NEURONTIN) 100 MG capsule Take 100 mg by mouth every morning Active gabapentin (NEURONTIN) 100 MG capsule Take 200 mg by mouth every evening Active finasteride (PROSCAR) 5 MG tablet Take 5 mg by mouth daily Active busPIRone (BUSPAR) 5 MG tablet Take 5 mg by mouth 2 times daily Active traZODone (DESYREL) 100 MG tablet Take 150 mg by mouth At Bedtime Active loratadine (CLARITIN) 10 MG tablet Take 10 mg by mouth daily Active tamsulosin (FLOMAX) 0.4 MG capsule Take 0.4 mg by mouth daily Active benzonatate (TESSALON) 100 MG capsuleIndication s:Influenza A Take 1 capsule (100 mg) by mouth 3 times daily as needed for cough 30 capsule 07/10/2022 Active senna-docusate (SENOKOT-S/JOHNNY LACE) 8.6-50 MG tablet Take 1 tablet by mouth 2 times daily Active cyclobenzaprine (FLEXERIL) 10 MG tablet Take 10 mg by mouth 3 times daily as needed for muscle spasms Active phenazopyridine (PYRIDIUM) 100 MG tablet Take 100 mg by mouth 3 times daily as needed for urinary tract discomfort Active aspirin 81 MG EC tablet Take 81 mg by mouth daily Active trospium (SANCTURA) 20 MG tablet Take 20 mg by mouth daily Active polyethylene glycol (MIRALAX) 17 GM/Dose powderIndications :Stercoral colitis Take 17 g by mouth 2 times daily 510 g 01/29/2023 Active senna-docusate (SENOKOT-S/JOHNNY LACE) 8.6-50 MG tabletIndications :Stercoral colitis Take 2 tablets by mouth every evening 30 tablet 01/29/2023 Active lactulose (CEPHULAC) 10 GM packetIndications :Stercoral colitis Take 2 packets (20 g) by mouth daily as needed for constipation (if no bowel movement in 48 hours) 15 each 01/29/2023 Active docusate sodium (ENEMEEZ) 283 MG enemaIndications: Stercoral colitis Place 1 enema rectally daily as needed for constipation (if no bowel movement 1-2 days) 5 mL 01/29/2023 Active doxycycline monohydrate (MONODOX) 100 MG capsule Take 1 capsule (100 mg) by mouth every 12 hours for 7 days. 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 Influenza A 07/07/2022 Generalized weakness 07/07/2022 Community acquired pneumonia of left lower lobe of lung 07/07/2022 Urothelial cancer 06/06/2022 Overview: Added automatically from request for surgery [id number] Opiate dependence, continuous 01/03/2021 Other constipation 01/13/2020 Gross hematuria 01/09/2020 Hematuria 01/08/2020 Fever 02/01/2017 BPH (benign prostatic hyperplasia) 01/17/2017 Back pain 07/08/2015 Acute back pain 07/08/2015 Unstable angina 11/20/2014 Chest pain 09/13/2013 Dizziness 11/01/2012 Syncope and collapse 10/30/2012 Non-cardiac chest pain 07/22/2012 Dyslipidemia 07/22/2012 Chronic low back pain 07/22/2012 Pain medication agreement 02/09/2012 Overview: Prescriber: Dr.William Migdalia Horowitz MD Secondary Dr. Moreno Ludwig MD Ok to fill at same amount/dose/frequency in my absence. Controlled substance agreement: 03/2014, Dr Horowitz. 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 Syncope 01/12/2012 Hypercholesterolemia 12/30/2011 Overview: Overview: Last Lipids: Chol: 217 11/05/2009 T 11/05/2009 HDL: 46 11/05/2009 LDL: 136 11/05/2009 HTN (hypertension) 12/30/2011 DMII (diabetes mellitus, type 2) 12/30/2011 Constipation 12/25/2011 Anemia associated with acute blood loss 12/25/19 12 New onset atrial fibrillation 12/25/2011 S/P CABG (coronary artery bypass graft) 12/16/19 12 Transient hyperglycemia post procedure 2 CAD (coronary artery disease) 12/15/2011 Chest pain on exertion 12/13/2011 GERD (gastroesophageal reflux disease) 1 Overview: Overview: EGD 04/2011 gastritis Resolved Problems Problem Noted Date Diagnosed Date Resolved Date Chronic bilateral low back p ain without sciatica 12/05/2016 02/13/2017 Hip pain, left 04/20/2015 09/08/2017 Advanced directives, counseling/discussion 12/25/2011 01/18/2024 Overview: Pt states having a living will somewhere. Pt open to new form and information. Pt received [facility] packet and stated intent to read it over in the near future. Breanna Vasquez, Tie Tamper 12/25/2011 Encounters Date Type Department Care Team Description 04/05/2024 9:05 PM CDT - 04/06/2024 12:35 AM CDT Emergency [facility] Emergency Dept [address] [place] [id number] Chaz Mistry MD Atypical pneumonia; Cough, unspecified type Discharge Disposition: Home or Self Care 04/05/2024 Travel from Last 3 Months Social History Tobacco Use Types Packs/Day Years Used Date Smoking Tobacco: Former Smokeless Tobacco: Never Comments:pt. reports that he quit 30 years ago Alcohol Use Standard Drinks/Week Comments Yes 7 (1 standard drink = 0.6 oz pur e alcohol) Adolescent Education Answer Date Record ed Getting School Help Needed Not on file 04/29 Sex and Gender Information Value Date Recorded Sex Assigned at Not on file Gender Identity Not on file Sexual Orientation Not on file Last Filed Vital Signs Vital Sign Reading Time Taken Comments Blood Pressure 143/81 04/06/2024 12:23 AM CDT Pulse 76 04/06/2024 12:23 AM CDT Temperature 37 ??C (98.6 ??F) 04/05/2024 9:13 PM CDT Respiratory Rate 18 04/05/2024 9:13 PM CDT Oxygen Saturation 99% 04/06/2024 12:23 AM CDT Inhaled Oxygen Concentration - - Weight 86.7 kg (191 lb 3.2 oz) 01/28/2023 6:41 A M CDT Height 180.3 cm (5' 11) 07/05/2022 2:27 PM PLASTIC FRAME INSERTER Body Mass Index 26.67 07/05/2022 2:27 PM PLASTIC FRAME INSERTER Plan of Treatment Health Maintenance Due Date Last Done Comments ANNUAL REVIEW OF HM ORDERS 1941 DIABETIC FOOT EXAM 1941 MICROALBUMIN 1941 HEPATITIS A IMMUNIZATION (1 of 2 - Risk 2-dose series) 1960 FALL RISK ASSESSMENT 2006 LIPID 09/14/2014 09/14/2013, 04/0 08/2012, 11/01/2012, Additional history exists RSV VACCINE (1 - 1-dose 75+ series) 2016 DTAP/TDAP/TD IMMUNIZATION (1 - Tdap) 12/19/2016 12/18/2016, 01/31/2006 ADVANCE CARE PLANNING 12/24/2016 12/25/2011 A1C 04/15/2020 01/14/2020, 01/02, 07/16/2012, Additional history exists EYE EXAM 01/03/2022 01/03/2021, 01/06/2019 PHQ-2 (once per calendar year) 2023 BMP 01/30/2024 01/29/2023, 01/02, 01/25/2023, Additional history exists COVID-19 Vaccine ( season) 2024 08/06/2023, 10/21/2022, 11/15/2021, Additional history exists INFLUENZA VACCINE (#1) 2024 , 05/20/2022, 05/08/2021, Additional history exists MEDICARE ANNUAL WELLNESS VISIT 03/24/2025 03/24/2024, 04/16/2023, 03/05/2022, Additional history exists LUNG CANCER SCREENING Discontinued 07/16/2012 Pneumococcal Vaccine: 65+ Years Completed 06/26/2015, 11/05/2009 ZOSTER IMMUNIZATION Completed 01/03/2019, 09/28/2018, 11/05/2009 HPV IMMUNIZATION Aged Out No longer e ligible based on patient's age to complete this topic MENINGITIS IMMUNIZATION Aged Out No l onger eligible based on patient's age to complete this topic RSV MONOCLONAL ANTIBODY Aged Out No l onger eligible based on patient's age to complete this topic Procedures Procedure Name Priority Date/Time Associated Diagnosis Comments XR CHEST 2 VIEWS STAT 04/05/2024 9:38 PM CDT INFLUENZA A/B, RSV, & SARS-COV2 PCR STAT 04/05/2024 9:16 PM CDT BASIC METABOLIC PANEL Routine 01/29/2023 6:39 AM CDT HEMOGLOBIN A1C Routine 01/14/2020 6:46 AM CDT Hematuria, unspecified type LIPID PROFILE Routine 09/14/2013 5:35 [address]AME [address] CT CHEST PULMONARY EMBOLISM W CONTRAST STAT 07/16/2012 5:53 PM PLASTIC FRAME INSERTER from Last 3 Months or Most Recently Relevant to Health Maintenance Results * Chest XR, PA & LAT (04/05/2024 9:38 PM CDT) Anatomical Region Laterality Modality Chest Digital Radiogra phy 04/05/2024 9:38 PM CDT Impressions 04/05/2024 10:01 PM CDT IMPRESSION: Median sternotomy wires. No acute cardiopulmonary process. Stable cardiomediastinal silhouette. Narrative 04/05/2024 10:01 PM CDT EXAM: XR CHEST 2 VIEWS LOCATION: [facility] DATE: 04/05/2024 INDICATION: Productive cough COMPARISON: 08/01/2022 Procedure Note Tyree Ramos MD - 04/05/2024 EXAM: XR CHEST 2 VIEWS LOCATION: [facility] DATE: 04/05/2024 INDICATION: Productive cough COMPARISON: 08/01/2022 IMPRESSION: Median sternotomy wires. No acute cardiopulmonary process.Stable cardiomediastinal silhouette. Chaz Mistry MD IMG DIAGNOSTIC IMAGI NG ORDERABLES * Symptomatic Influenza A/B, RSV, & SARS-CoV2 PCR (COVID-19) Nasopharyngeal (04/05/2024 9:16 PM CDT) Pathologist [facility] Influenza A PCR Negative Negative 04/05/2024 10:05 PM CDT LABORATORY Influenza B PCR Negative Negative 04/05/2024 10:05 PM CDT LABORATORY RSV PCR Negative Negative 04/05/2024 10:05 PM CDT LABORATORY SARS CoV2 PCR Negative Negative 04/05/2024 10:05 PM CDT LABORATORY Comment:NEGATIVE: SARS-CoV-2 (COVID-19) RNA not detected, presumed negative. Swab NASOPHARYNGEAL STRUCTURE / Unknown Non-blood Collection / Unknown 04/05/2024 9:16 PM CDT 04/05/2024 9:25 PM CDT [facility] LABORATORY - 04/05/2024 10:05 PM CDT Testing was performed using the Xpert Xpress CoV2/Flu/RSV Assay on the [employer] Instrument. This test should be ordered for the detection of SARS- CoV2, influenza, and RSV viruses in individuals with signs and symptoms of respiratory tract infection. This test is for in vitro diagnostic use under the [place] FDA for laboratories certified under CLIA to perform high or moderate complexity testing. This test has been [place] FDA cleared. A negative result does not rule out the presence of PCR inhibitors in the specimen or target RNA in concentration below the limit of detection for the assay. If only one viral target is positive but coinfection with multiple targets is suspected, the sample should be re-tested with another FDA cleared, approved, or authorized test, if coninfection would change clinical management. This test was validated by the [facility] [employer] [facility]. These laboratories are certified under the Clinical Laboratory Improvement Amendments of 1988 (CLIA-88) as qualified to perfom high complexity laboratory testing. Chaz Mistry MD LAB - MICRO GENERAL ORDERABLES LABORATORY [facility] [address] 1[address] floor, [address] [place] [address], [facility] [phone] * (ABNORMAL) Basic metabolic panel (01/29/2023 6:39 AM CDT) Sodium 138 136 - 145 mmol/L 01/29/2023 7:05 AM CDT LABORATORY Potassium 4.3 3.4 - 5.3 mmol/L 01/29/2023 7:05 AM CDT LABORATORY Chloride 105 98 - 107 mmol/L 01/29/2023 7:05 AM CDT LABORATORY Carbon Dioxide (CO2) 24 22 - 29 mmol/L 01/29/2023 7:05 AM CDT LABORATORY Anion Gap 9 7 - 15 mmol/L 01/29/2023 7:05 AM CDT LABORATORY Urea Nitrogen 11.2 8.0 - 23.0 mg/dL 01/29/2023 7:05 AM CDT LABORATORY Creatinine 1.18(H) 0.67 - 1.17 mg/dL 01/29/2023 7:05 AM CDT LABORATORY Calcium 8.8 8.8 - 10.2 mg/dL 01/29/2023 7:05 AM CDT LABORATORY Glucose 107(H) 70 - 99 mg/dL 01/29/2023 7:05 AM CDT LABORATORY GFR Estimate 62 >60 mL/min/1.7 3m2 01/29/2023 7:05 AM CDT LABORATORY Blood STRUCTURE OF RIGHT UPPER LIMB / Unknown Venipuncture / Unknown 01/29/2023 6:39 AM CDT 01/29/2023 6:44 AM CDT Carmina Campuzano PA-C LAB - BLOOD ORDERA BLES LABORATORY [facility] [address] Lab (1st floor, no room number) [facility] [place] [place] [address], [place] [phone] * Hemoglobin A1c (01/14/2020 6:46 AM CDT) Hemoglobin A1C 5.4 0 - 5.6 % 01/14/2020 8:20 AM CDT [facility] Comment: Normal <5.7% Prediabetes 5.7-6.4% ??Diabetes 6.5% or higher - adopted from ADA consensus guidelines. 01/14/2020 6:46 AM CDT 01/14/2020 6:47 AM CDT Mei Garvey MD LAB - BLOOD ORDERABL ES [facility] [address] [address], [facility] [phone] * (ABNORMAL) Lipid Profile (09/14/2013 5:35 AM PLASTIC FRAME INSERTER) Cholesterol 114 0 - 200 mg/dL [facility] Comment: LDL Cholesterol is the primary guide to therapy. The NCEP recommends further evaluation of: patients with cholesterol greater than 200 mg/dL if additional risk factors are present, cholesterol greater than 240 mg/dL, triglycerides greater than 150 mg/dL, or HDL less than 40 mg/dL. Triglycerides 148 0 - 150 mg/dL [facility] HDL Cholesterol 28(L) 40 - 110 mg/dL [facility] LDL Cholesterol Calculated 57 0 - 129 mg/dL [facility] Comment: LDL Cholesterol is the primary guide to therapy: LDL-cholesterol goal in high risk patients is <100 mg/dL and in very high risk patients is <70 mg/dL. VLDL-Cholesterol 30 0 - 30 mg/dL [facility] Cholesterol/HDL Ratio 4.1 0.0 - 5.0 [facility] Blood specimen (specimen) 09/14/2013 5:35 AM PLASTIC FRAME INSERTER 09/14/2013 6:15 AM PLASTIC FRAME INSERTER Bessie Rasmussen PA-C LAB - BLOOD ORDERABLES [facility] * CT Chest pulmonary embolism w IV contrast (07/16/2012 5:53 PM PLASTIC FRAME INSERTER) Anatomical Region Laterality Modality Chest, SUBRAD CT BODY, UMP CT CHEST Computed Tomography 07/16/2012 5:53 PM PLASTIC FRAME INSERTER Impressions 07/16/2012 6:01 PM PLASTIC FRAME INSERTER IMPRESSION: 1. No evidence for pulmonary embolus. 2. Coronary calcifications with previous sternotomy. 3. Small blebs in both apices. 4. Remainder of the scan is negative. SUNDAY JACOBS MD Narrative 07/16/2012 6:01 [address] FRAME [address]ERTER CT CHEST WITH CONTRAST 07/16/2012 5:53 PM HISTORY: Left-sided chest pain. History of triple bypass. Rule out PE. TECHNIQUE: Scans obtained from the apices through the diaphragm with IV contrast. 80 mL of Isovue 370 injected. COMPARISON: None. FINDINGS: Pulmonary arteries are well-opacified and appear patent without evidence of pulmonary embolus. Thoracic aorta is normal without evidence of aneurysm or dissection. Coronary calcifications. Previous is sternotomy. Calcified mediastinal lymph nodes. Small blebs in both apices. Lungs are otherwise clear. Upper abdomen is negative. Remainder of the scan is negative. Procedure Note Sunday Jacobs MD - 07/16/2012 CT CHEST WITH CONTRAST 07/16/2012 5:53 PM HISTORY: Left-sided chest pain. History of triple bypass. Rule out PE. TECHNIQUE: Scans obtained from the apices through the diaphragm with IV contrast. 80 mL of Isovue 370 injected. COMPARISON: None. FINDINGS: Pulmonary arteries are well-opacified and appear patent without evidence of pulmonary embolus. Thoracic aorta is normal without evidence of aneurysm or dissection. Coronary calcifications. Previous is sternotomy. Calcified mediastinal lymph nodes. Small blebs in both apices. Lungs are otherwise clear. Upper abdomen is negative. Remainder of the scan is negative. IMPRESSION IMPRESSION: 1. No evidence for pulmonary embolus. 2. Coronary calcifications with previous sternotomy. 3. Small blebs in both apices. 4. Remainder of the scan is negative. SUNDAY JACOBS MD Mickey Solomon MD IMG CT ORDERABLE S from Last 3 Months or Most Recently Relevant to Health Maintenance Advance Directives For more information, please contact: [phone] * Full Code (Latest Code Status on File) Date Activated Date Inactivated Comments 01/25/2023 10:32 PM 01/29/2023 4:31 PM All basic a nd advanced life-sustaining interventions are performed as appropriate Question Answer Comments Code status determined by: Discussion with patie nt/ legal decision maker * Full Code Date Activated Date Inactivated Comments 07/05/2022 2:31 PM 07/10/2022 3:02 PM All basic an d advanced life-sustaining interventions are performed as appropriate Question Answer Comments Code status determined by: Discussion with patie nt/ legal decision maker * Full Code Date Activated Date Inactivated Comments 01/13/2020 11:43 PM 01/15/2020 3:33 PM Question Answer Comments Code status determined by: Discussion with patie nt/legal decision maker * Full Code Date Activated Date Inactivated Comments 01/12/2020 8:13 AM 01/13/2020 6:23 PM Question Answer Comments Code status determined by: Discussion with patie nt/legal decision maker * Full Code Date Activated Date Inactivated Comments 01/08/2020 1:36 AM 01/12/2020 8:13 AM Question Answer Comments Code status determined by: Other (please yan t) Care Teams Transit Proof Machine Operator Relationship Specialty Start Date End Date Votel, Saqib Negron [address] [place] [address] PCP - General Family Medicine 11/07/22
--- OUTSIDE RECORDS SUMMARY | 2024-04-23 10:02 | XMS_ITS | Clinical Summary ---
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 reports are released immediately into your electronicmedical record. You may view this report before your referring provider.If you have questions, please contact your health care provider. EXAM: MR SPINE CERVICAL WO LOCATION: [facility] DATE: 01/28/2024 INDICATION: S/p Cervical Spinal Fusion Cervical Radiculopathy ArthropathyOf Cervical Facet Joint COMPARISON: 04-16-23 XR TECHNIQUE: MRI Cervical Spine without IV contrast. FINDINGS: Normal vertebral body heights. Mild anterolisthesis C7-T1. MultilevelModic type I degeneration and Schmorl's node-like endplate indentations.No abnormal cord signal. Bilateral facet arthropathy. Complete anteriorbony fusion C4-C7. Craniovertebral junction and C1-C2: Normal. C2-C3: Mild disc height loss and disc degeneration. Uncovertebral spurringand bilateral facet arthropathy. Mild bilateral neural foraminal stenosis.No spinal canal stenosis. C3-C4: Moderate disc height loss and disc degeneration. Disc osteophytecomplex and bilateral facet arthropathy. Thickening of the ligamentumflavum contributes to severe spinal canal stenosis. Left facet jointeffusion. Severe left and moderate to severe right neural foraminalstenosis. C4-C5: Moderate disc height loss and disc degeneration. Disc osteophytecomplex and bilateral uncinate spurring. Bilateral facet arthropathy.Thickening of the ligamentum flavum contributes to severe spinal canalstenosis. Moderate bilateral neural foraminal stenosis. C5-C6: Bony fusion. Right eccentric uncovertebral spurring and bilateralfacet arthropathy. Mild right neural foraminal stenosis. No spinal canalor left neural foraminal stenosis. C6-C7: Bony fusion. Uncovertebral spurring and bilateral facetarthropathy. Mild to moderate bilateral neural foraminal stenosis. Nospinal canal stenosis. C7-T1: Moderate disc height loss and disc degeneration. Uncovered discbulge and superimposed central annular fissure. Bilateral facetarthropathy. Mild bilateral neural foraminal stenosis. No spinal canalstenosis. IMPRESSION: 1. Multilevel cervical spondylosis detailed above. Severe spinal canalstenosis at C3-4 and C4-5. 2. Severe left and moderate to severe right neural foraminal stenosis atC3-4 and moderate bilateral neural foraminal stenosis C4-5. 3. Multilevel facet arthropathy and Modic type I changes. 4. No abnormal spinal cord signal. Moreno Ludwig MD MR from Last 3 Months Advance Directives * Full Code (Latest Code Status on File) Date Activated Date Inactivated Comments 07/17/2023 7:39 AM 07/18/2023 7:43 PM Question Answer Comments Code Status Discussion: Unable to Assess Preferences, Provider to review later * Full Code Date Activated Date Inactivated Comments 04/09/2023 10:20 PM 04/10/2023 4:50 PM Question Answer Comments Code Status Discussion: Reviewed Preferences * Full Code Date Activated Date Inactivated Comments 09/12/2022 11:20 AM 09/13/2022 5:04 PM Question Answer Comments Code Status Discussion: Not Discussed * Full Code Date Activated Date Inactivated Comments 10/09/2020 8:39 AM 10/10/2020 4:38 PM Question Answer Comments Code Status Discussion: Not Discussed * Full Code Date Activated Date Inactivated Comments 09/17/2017 11:20 AM 09/18/2017 1:04 PM Question Answer Comments Code Status Discussion: Discussed Care Teams Irrigation Foreman Relationship Specialty Start Date End Date VotelSaqib MD [address] [place] [address] PCP - General Family Practice 01/14/12 Neeraj James MD [address], [address] [address] [place] [address] Cardiology Cardiovascular Disease 01/06/12 Aydin Beasley MD [address] [facility] [address] [place] [address] Orthopedics Surgery - Orthopedics 09/22/13 Bessie Mcduffie, RN [address] [address] Print Support Specialist - [facility] Registered Nurse 11/02/15 Courtney Arevalo RN [address] [address] Print Support Specialist - [facility] Registered Nurse 06/03/16 Lawson Garrido MD [address] [address] Surgery - Urology 10/02/20 Paris Max, RN [address] [address] Print Support Specialist - [facility] Registered Nurse 06/30/21
--- OUTSIDE RECORDS SUMMARY | 2024-04-23 10:02 | XMS_ITS | Encounter Summary ---
Author Organization [place] Address [facility]0 [facility] [place] [address] Care Team Providers Care Support Dba Name Role Phone Votel, Saqib Negron Primary Care Provider [phone] Laura Arnold MD Unavailable Votel, Saqib Negron Primary Care Provider [phone] Encounter Details Date Type Department Care Team (Late st Contact Info) Description 03/05/2022 [facility] [address] 4[address] [place] [address] Laura Arnold MD [address] [facility] [address] [place] [address] Social History Tobacco Use Types Packs/Day Years Used Date Smoking Tobacco: Former Comments:pt. reports that he quit 30 years ago Alcohol Use Standard Drinks/Week Comments Yes 7 (1 standard drink = 0.6 oz pur e alcohol) Sex and Gender Information Value Date Recorded Sex Assigned at Not on file Gender Identity Not on file Sexual Orientation Not on file documented as of this encounter Miscellaneous Notes * Telephone Encounter - Annika Waite - 03/05/2022 3:[address] 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
--- OUTSIDE RECORDS SUMMARY | 2024-04-23 10:02 | XMS_ITS | Encounter Summary ---
Author Organization [place] Address Replaced by [facility] [place] [address] Care Team Providers Care Floor Finisher Name Role Phone Camelia, [facility] [place] Primary Care Provider Saqib Horowitz Primary Care Provider [phone] Laura Arnold MD Unavailable Saqib Horowitz Primary Care Provider [phone] Encounter Details Date Type Department Care Team (Late st Contact Info) Description 04/01/2012 Office Visit-[facility] [address] [place] [address] Kris Todd MD Social History Tobacco Use Types Packs/Day Years Used Date Smoking Tobacco: Former Alcohol Use Standard Drinks/Week Comments Yes 0 (1 standard drink = 0.6 oz pur e alcohol) 1 nanci daily Sex and Gender Information Value Date Recorded Sex Assigned at Not on file Gender Identity Not on file Sexual Orientation Not on file documented as of this encounter Progress Notes * Kris Todd MD - 05/30/2012 12:02 PM CDT Progress Note Created by: Kris Todd M.D. DATE: 04/01/2012 KEVON ANDERSEN DATE OF : 1940 AGE: [age] years old Referring Physician: SAQIB HOROWITZ Referring Clinic: [facility] CURRENT DIAGNOSES 1. - Hyperlipidemia mixed, 272.2 2. - CAD, 414.00 3. - Atrial Fibrillation, 427.31 4. Sleep apnea, 786.09 5. - CABG, V45.81 ALLERGIES Penicillin Antibiotic - Extended-spectrum Penicillin Antibiotic - Natural (i.e. Pen G, Pen V) Penicillin Antibiotic - Penicillinase-resistant Penicillin Antibiotic, Extended-spectrum & Beta-lactamase Inhib. Comb Penicillin Natural Antibiotic Combinations - Extended Release MEDICATIONS (prior to changes made today) 1. aspirin, buffered 81 mg tablet, 1 p.o. daily has not started 2. betamethasone dipropionate 0.05 % Cream, as Directed 3. Flexeril 10 mg Tablet, 1 p.o. twice daily 4. metoprolol tartrate 25 mg Tablet, 1/2 tab twice daily 5. omeprazole 40 mg Capsule, Delayed Release(E.C.), 1 p.o. daily 6. oxycodone 5 mg Tablet, Take as Directed 7. simvastatin 40 mg Tablet, 1 p.o. qHS 8. trazodone 150 mg Tablet, 1 p.o. 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 He seems to be able to do much more than he did prior to the bypass surgery that he underwent in December when he had a left internal mammary artery to the left anterior descending and saphenous vein grafts to the posterior descending artery and NORA, I believe as a sequential graft. He still gets a bit of back pain and sees a back specialist. He still has discomfort in the left ribcage along the line bisecting the left chest where the usual sternal splitting pressure occurs. It is not tender, but it does hurt sometimes to twist, turn or cough and it is not getting much better, which is concerning him some, but I think he just needs to give it a little bit of time. I have told him tostretch and breathe deeply and maybe use a little bit of heat. He does have remote cigarette usage, blood pressure and cholesterol as risk factors for heart disease. He does not have diabetes. His family history is quite strong for coronary artery disease in both mother and father. With a little bit of luck and the excellent surgical intervention things are likely to go well for the next couple of decades. He currently is on simvastatin 40 and not on any other medications that generally interfere with simvastatin, but I do not know what his current lipids might be and would be interested in seeing them aggressively treated. Along those lines I might actually be more interested in atorvastatin at 80, but if the current medications do the job that would be [facility] as well. His LDL cholesterol when he presented in December was only 102 and this was not on anycholesterol drugs so simvastatin 40 may have dropped his LDL into excellent range. His HDL was 32 at the time, his total cholesterol 183 and triglycerides 248 with ratio of 5.8. I will leave the doseof statins to your good handling, but do recommend an LDL below 70 and some people believe if the HDL is low one should attempt to get the LDL fairly close to the HDL. Nonetheless, this gentleman does not actually have premature heart disease in the setting of a family history and hypertension, having his disease at age 71, but nonetheless he is physically pretty tough and we would like to keep him going for another few decades. His blood pressure at 129/71 and heart rate of 85 seen excellent for seeing a diver tender in the office and I will bet the pressure is a bit lower when he is at his ease. PAST HISTORY Past Medical Illnesses: GERD, History of chronic pain syndrome ( Chronic low back pain), Chronic insomnia, hyperlipidemia Past Cardiac Illnesses: coronary artery disease, 12/12 [facility] Cardiac and Vascular Surgeries: CABG 12/2011, triple vessel coronary artery bypass Bypass Graft Anatomy: 12/2011 left internal mammary artery to left anterior descending coronary artery and separate reversed saphenous vein grafts to the right posterior descending coronary artery and the right posterolateral coronary artery. Cardiac/Vasc Procedures-Invasive: cardiac cath (left) December 2011 Cardiology Procedures-NonInvasive: echocardiogram December 2011, January 2012 Pulmonary Testing: CXR December 2011 Cardiac Cath Results: 12/12 Distal RCA involving crux 95%, PDA 95%, Proximal distal large posterolateral branch 90%, Mid and distal RCA 50-60%. Proximal LAD approx. 50- 60%, is a focal not hazy 95% stenosis in mid LAD. Left CFX-OM 80%,ostium of CFX 50%.Recommend bypass PMHx Echo Results: 12/12 LVSF is normal, Trace MR, Trace TR. 01/12 LVSF is normal, RVSF is normal, no wall motion abnormalities. trace-mild MR, Trace TR, Trivial pericardial effusion,Compared to the prior study dated 12/12, there have been no changes Left Ventricular Ejection Fraction: EF 55-60% by echo 12/12, EF 55-60% by Echo 01/12, EF 65% by cath 12/12 Pulmonary Results: CXR 12/12 The lungs are clear. There is no pneumothorax. There is no evidence for pleural effusion. LVEF of 55-60%% documented via echocardiogram on 01/13/2012 FAMILY HISTORY: Family - strong family history of CAD; SOCIAL HISTORY Alcohol Use - drinks regularly 1 per day; Smoking - used to smoke but quit and 1982; Diet - regulardiet without modifications; Exercise - some exercise and walking/stairs; Seat Belt Use - always; Residence - lives alone; REVIEW OF SYSTEMS GENERAL feels well, no change in exercise tolerance. EYES reading glasses only EARS, NOSE, THROAT, MOUTH hearing aide(s) left ear RESPIRATORY dyspnea with exertion, better CARDIOVASCULAR chest pain, everyday ABDOMINAL history of GERD MUSCULOSKELETAL History of chronic pain syndrome ( Chronic low back pain) NEUROLOGICAL denies any history of recurrent headaches, strokes, TIA, or seizure disorder. PSYCHIATRIC sleep disturbance, Chronic insomnia ENDOCRINE borderline PHYSICAL EXAMINATION VITAL SIGNS: Blood Pressure: 129/71Sitting, Left arm, regular cuff Pulse- 85.00/min. Weight- 181.00 lbs. Height- 71 BMI Measurement: 25 CONSTITUTIONAL well developed, well nourished, in no acute distress SKIN warm and dry to touch HEAD normocephalic EYES Pupils equal and round ENT hearing aide present right ear, hearing aide present left ear NECK JVP normal, no carotid bruit, thyroid not enlarged CHEST clear to auscultation, normal respiratory excursion, sternum intact to deep palpation and cough, healed median sternotomy scar CARDIAC normal 1st and 2nd heart sounds without murmur or gallop, regular rhythm ABDOMEN abdomen soft, bowel sounds normoactive PERIPHERAL PULSES pulses full and equal in all extremities EXTREMITIES & BACK no clubbing, cyanosis or edema MEDICATIONS UPDATED/STARTED TODAY: aspirin, buffered 81 mg tablet, 1 p.o. daily has not started, #0 (Zero) MEDICATIONS REFILLED/STOPPED TODAY: aspirin, buffered 81 mg Tablet 1 p.o. daily #0 (Zero) Dosage Decreased and warfarin 5 mg Tablet Take as Directed #0 (Zero) Physician Order IMPRESSIONS/PLAN 1. Presenting with unstable angina and undergoing left internal mammary artery to the left anteriordescending and saphenous vein graft bypasses to the right coronary artery branches. 2. Hyperlipidemia, I suspect probably well controlled on simvastatin 40. 3. Hypertension, probably well controlled at this point in time on fairly low doses of metoprolol 25 twice daily. 4. Acid peptic disease, on omeprazole. 5. Chronic back pain, on oxycodone and Flexeril. 6. Aspirin 81 mg per day that he will stay on for skilled nursing, likely the rest of his life. 7. Pain in the left chest in the area generally affected by sternal separation that is likely to get slowly better over the next several months. Dr. Coronel may have some recommendations for him in terms of this particular pain, but I suspect that most everyone would simply ask him to stretch and use heat, maybe visit physical therapy for some ultrasound and wait it out. I would be glad to help him in any way that I can, but I think it is probably inconvenient for him to come and see me all together that often, particularly if he is feeling well, so I will tell him that he can come back in a year's time, but if that is inconvenient he can stretch it out for two years. If, in fact, you would like us to keep track of his cholesterol I would be glad to review the numbers at any time and chat with you about this good gentleman. It is excellent to have a man come in, get fixed and leave better than he came in, although for this gentleman he is not 100% yet. TODAYS ORDERS 1. Return Visit 1 year Kris Todd M.D. documented in this encounter Plan of Treatment Not on file documented as of this encounter Visit Diagnoses Not on filedocumented in this encounter Additional Health Concerns Infection Onset Date Last Indicated Resolved Time Rule Out COVID-19 07/05/2022 07/05/2022 07/05/2022 11:06 AM UROGYNAECOLOGIST Influenza 07/05/2022 07/05/2022 07/12/2022 11:4 0 PM UROGYNAECOLOGIST Rule Out COVID-19 04/05/2024 04/05/2024 04/05/2024 10:05 PM CDT documented as of this encounter Care Teams Floor Finisher Relationship Specialty Start Date End Date [facility], [facility] [address] [place] [address] PCP - General 01/12/12 11/19/14 VoteSaqib bright [address] [place] [address] PCP - General Family Practice 11/20/14 11/06/22 VoteSaqib bright [address] [place] [address] PCP - General Family Medicine 11/07/22 Laura Arnold MD [address] [address] Assigned Surgical Provider 05/10/22 documented as of this encounter
--- OUTSIDE RECORDS SUMMARY | 2024-04-23 10:02 | XMS_ITS | Referral Summary ---
Author Organization [facility] Address [address] [place] [address] Care Team Providers Care Instructor Of Spanish Name Role Phone JeancarlosteSaqib bright Primary Care Provider [phone] Encounters Date Type Department Care Team Description 04/05/2024 9:05 PM CDT - 04/06/2024 12:[address] [facility] Emergency Dept [address] [place] [address] Chaz Mistry MD Atypical pneumonia; Cough, unspecified type Discharge Disposition: Home or Self Care 04/05/2024 Travel from Last 3 Months Allergies Active Allergy Reactions Criticality Noted Date [...] Overview: Added automatically from request for surgery [id number] Opiate dependence, continuous 01/03/2021 Other constipation 01/13/2020 [...] Controlled substance agreement: 03/2014, Dr Horowitz. AUTOMOTIVE GLASS SPECIALIST query on was acceptable on 07/16/17 Last [...] to new form and information. Pt received [employer] packet and stated intent to read it over in the near future. Breanna Vasquez, Weed Controller 12/25/2011 Social History Tobacco Use Types Packs/Day Years [...] 180.3 cm (5' 11) 07/05/2022 2:27 PM [facility] Body Mass Index 26.67 07/05/2022 2:27 PM [facility] Plan of Treatment Not on file Procedures Procedure Name Priority Date/Time Associated Diagnosis Comments XR CHEST 2 VIEWS STAT 04/05/2024 9:38 PM CDT INFLUENZA A/B, RSV, & SARS-COV2 PCR STAT 04/05/2024 9:16 PM CDT BASIC METABOLIC PANEL Routine 01/29/2023 6:39 AM CDT HEMOGLOBIN A1C Routine 01/14/2020 6:46 AM CDT Hematuria, unspecified type LIPID PROFILE Routine 09/14/2013 5:[address] CHEST PULMONARY EMBOLISM W CONTRAST STAT 07/16/2012 5:53 PM [facility] from Last 3 Months or Most Recently Relevant to Health Maintenance Results * Chest XR, PA & LAT (04/05/2024 9:38 PM CDT) Anatomical Region Laterality Modality Chest Digital Radiogra phy 04/05/2024 9:38 PM CDT Impressions 04/05/2024 10:01 PM CDT IMPRESSION: Median sternotomy wires. No acute cardiopulmonary process. Stable cardiomediastinal silhouette. Narrative 04/05/2024 10:01 PM CDT EXAM: XR CHEST 2 VIEWS LOCATION: [facility] DATE: 04/05/2024 INDICATION: Productive cough COMPARISON: 08/01/2022 Procedure Note Tyree Ramos MD - 04/05/2024 EXAM: XR CHEST 2 VIEWS LOCATION: [facility] DATE: 04/05/2024 INDICATION: Productive cough COMPARISON: 08/01/2022 IMPRESSION: Median sternotomy wires. No acute cardiopulmonary process.Stable cardiomediastinal silhouette. Chaz Mistry MD IMG DIAGNOSTIC IMAGI NG ORDERABLES * Symptomatic Influenza A/B, RSV, & SARS-CoV2 PCR (COVID-19) Nasopharyngeal (04/05/2024 9:16 PM CDT) Influenza A PCR Negative Negative 04/05/2024 10:05 [...] 9:16 PM CDT 04/05/2024 9:25 PM CDT [facility] LABORATORY - 04/05/2024 10:05 PM CDT Testing was performed using the Xpert Xpress CoV2/Flu/RSV Assay on the [employer] Instrument. This test should be ordered for [...] management. This test was validated by the [facility]. These laboratories are certified under the Clinical Laboratory Improvement Amendments of 1988 (CLIA-88) as qualified to perfom high complexity laboratory testing. Chaz Mistry MD LAB - MICRO GENERAL ORDERABLES LABORATORY [facility] Lab [address] 1st floor, [address] [place] [address], [facility] [phone] * (ABNORMAL) Basic metabolic panel (01/29/2023 6:39 [...] Campuzano PA-C LAB - BLOOD ORDERA BLES Performing Organization Address [facility]/State/ZIP Co de Phone Number [facility] Acute Care Lab [address] Lab (1st floor, no room number) [place] [address], [facility] [phone] * Hemoglobin A1c (01/14/2020 6:46 AM CDT) Hemoglobin A1C 5.4 0 - 5.6 % 01/14/2020 8:20 AM CDT [facility] Comment: Normal <5.7% Prediabetes 5.7-6.4% ??Diabetes 6.5% or higher - adopted from ADA consensus guidelines. 01/14/2020 6:46 AM CDT 01/14/2020 6:47 AM CDT Mei Garvey MD LAB - BLOOD ORDERABL ES Performing Organization Address City/[facility]/ZIP Co de Phone Number [facility] [address] [place] [address], [facility] [phone] * (ABNORMAL) Lipid Profile (09/14/2013 5:35 AM [facility]) Cholesterol 114 0 - 200 mg/dL [facility] Comment: LDL Cholesterol is the primary guide to therapy. The NCEP recommends further evaluation of: patients with cholesterol greater than 200 mg/dL if additional risk factors are present, cholesterol greater than 240 mg/dL, triglycerides greater than 150 mg/dL, or HDL less than 40 mg/dL. Triglycerides 148 0 - 150 mg/dL [facility] HDL Cholesterol 28(L) 40 - 110 mg/dL [facility] LDL Cholesterol Calculated 57 0 - 129 mg/dL [facility] Comment: LDL Cholesterol is the primary guide to therapy: LDL-cholesterol goal in high risk patients is <100 mg/dL and in very high risk patients is <70 mg/dL. VLDL-Cholesterol 30 0 - 30 mg/dL [facility] Cholesterol/HDL Ratio 4.1 0.0 - 5.0 [facility] Blood specimen (specimen) 09/14/2013 5:35 AM [facility] 09/14/2013 6:15 AM [facility] Bessie Rasmussen PA-C LAB - BLOOD ORDERABLES Performing Organization Address [facility]/ZIP Co de Phone Number [facility] * CT Chest pulmonary embolism w IV contrast (07/16/2012 5:53 PM [facility]) Anatomical Region Laterality Modality Chest, SUBRAD CT BODY, UMP CT CHEST Computed Tomography 07/16/2012 5:53 PM [facility] Impressions 07/16/2012 6:01 PM [facility] IMPRESSION: 1. No evidence for pulmonary embolus. 2. Coronary calcifications with previous sternotomy. 3. Small blebs in both apices. 4. Remainder of the scan is negative. SUNDAY JACOBS MD Narrative 07/16/2012 6:[address] CHEST WITH CONTRAST 07/16/2012 5:53 PM [...] Advance Directives For more information, please contact: [phone] * Full Code (Latest Code Status on [...] Comments Code status determined by: Other (please denissen t) Care Teams Instructor Of Spanish Relationship Specialty Start Date End Date Votel, Saqib MENDEZ: [id number] [address] [place] [address] PCP - General Family Medicine 11/07/22
--- OUTSIDE RECORDS SUMMARY | 2024-04-23 10:02 | XMS_ITS | Encounter Summary ---
Author Organization [facility] Address [address] [place] [address]. [place] [address] Care Team Providers Care Liquor Merchant Name Role Phone JeancarlosteSaqib bright Primary Care Provider [phone] Reason for Visit * Reason Comments Flu Symptoms Encounter Details Date Type Department Care Team (Late st Contact Info) Description 04/05/2024 9:05 PM CDT - 04/06/2024 12:35 AM CDT Emergency [facility] Emergency Dept [address] [place] [phone] Chaz Mistry MD [facility] [address] [place] [address] [place] [address] Atypical pneumonia; Cough, unspecified type Discharge Disposition: Home or Self Care Social History Tobacco Use Types Packs/Day Years [...] on file documented as of this encounter Last Filed Vital Signs Vital Sign Reading Time Taken Comments Blood Pressure 143/81 04/06/2024 12:23 AM CDT Pulse 76 04/06/2024 12:23 AM CDT Temperature 37 ??C (98.6 ??F) 04/05/2024 9:13 PM CDT Respiratory Rate 18 04/05/2024 9:13 PM CDT Oxygen Saturation 99% 04/06/2024 12:23 AM CDT Inhaled Oxygen Concentration - - Weight - - Height - - Body Mass Index - - documented in this encounter Discharge Instructions * Attachments The following attachments cannot be sent through Care Everywhere. * COPD: Prevent Lung Infections: General Info (Guatemalan) * Pneumonia (Guatemalan) * Cough (Guatemalan) documented in this encounter Medications at Time of Discharge Medication Sig Dispensed Refills Start Date End Date acetaminophen (TYLENOL) 325 MG tablet Take 325-650 mg by mouth every 6 hours as needed for mild pain aspirin 81 MG EC tablet Take 81 mg by mouth daily atorvastatin (LIPITOR) 40 MG tabletIndications:Dys lipidemia Take 1 tablet by mouth daily. 90 tablet 0 07/22/2012 benzonatate (TESSALON) 100 MG capsuleIndications:In fluenza A Take 1 capsule (100 mg) by mouth 3 times daily as needed for cough 30 capsule 07/10/2022 busPIRone (BUSPAR) 5 MG tablet Take 5 mg by mouth 2 times daily cyclobenzaprine (FLEXERIL) 10 MG tablet Take 10 mg by mouth 3 times daily as needed for muscle spasms docusate sodium (ENEMEEZ) 283 MG enemaIndications:Ster coral colitis Place 1 enema rectally daily as needed for constipation (if no bowel movement 1-2 days) 5 mL 01/29/2023 ferrous sulfate (FEROSUL) 325 (65 Fe) MG tablet Take 325 mg by mouth 2 times daily 0800, 1999 finasteride (PROSCAR) 5 MG tablet Take 5 mg by mouth daily gabapentin (NEURONTIN) 100 MG capsule Take 100 mg by mouth every morning gabapentin (NEURONTIN) 100 MG capsule Take 200 mg by mouth every evening isosorbide mononitrate (IMDUR) 30 MG 24 hr tablet Take 30 mg by mouth daily HOLD for SBP<110 lactulose (CEPHULAC) 10 GM packetIndications:Mckay rcoral colitis Take 2 packets (20 g) by mouth daily as needed for constipation (if no bowel movement in 48 hours) 15 each 01/29/2023 loratadine (CLARITIN) 10 MG tablet Take 10 mg by mouth daily metoprolol (TOPROL-XL) 25 MG 24 hr tablet Take 25 mg by mouth daily nitroglycerin (NITROSTAT) 0.4 MG SL tabletIndications:CAD (coronary artery disease),Chest pain on exertion Place 1 tablet (0.4 mg) under the tongue every 5 minutes as needed for chest pain If you are still having symptoms after 3 doses (15 minutes) call 911. 25 tablet 0 11/22/2014 Nutritional Supplements (ENSURE ACTIVE) LIQD Take 240 mLs by mouth daily omeprazole (PRILOSEC) 40 MG capsule Take 40 mg by mouth daily. oxyCODONE IR (ROXICODONE) 10 MG tablet Take 10-15 mg by mouth every 4 hours as needed for severe pain phenazopyridine (PYRIDIUM) 100 MG tablet Take 100 mg by mouth 3 times daily as needed for urinary tract discomfort polyethylene glycol (MIRALAX) 17 GM/Dose powderIndications:Mckay rcoral colitis Take 17 g by mouth 2 times daily 510 g 01/29/2023 senna-docusate (SENOKOT-S/PERICOLACE ) 8.6-50 MG tabletIndications:Mckay rcoral colitis Take 2 tablets by mouth every evening 30 tablet 01/29/2023 senna-docusate (SENOKOT-S/PERICOLACE ) 8.6-50 MG tablet Take 1 tablet by mouth 2 times daily tamsulosin (FLOMAX) 0.4 MG capsule Take 0.4 mg by mouth daily traZODone (DESYREL) 100 MG tablet Take 150 mg by mouth At Bedtime trospium (SANCTURA) 20 MG tablet Take 20 mg by mouth daily doxycycline monohydrate (MONODOX) 100 MG capsule Take 1 capsule (100 mg) by mouth every 12 hours for 7 days. 14 capsule 04/06/2024 04/13/2024 documented as of this encounter ED Notes * Chaz Mistry MD - 04/06/2024 12:17 AM CDT Emergency Department Note History of Present Illness Chief Complaint Flu Symptoms HPI Scott Ma is a 83 year old male with a history of COPD, type II diabetes, [place], hypertension, and pneumonia who presents for evaluation of flu symptoms. The patient states he has had four days ofcough, sore throat, chest pain, and headache. Notes that he has felt like this before and was diagnosed with pneumonia and influenza. States that he takes oxycodone for pain daily. Independent Historian None Review of External Notes None Past Medical History Medical History and Problem List CAD Anemia Atrial fibrillation Hypertension Hypercholesteremia Type II diabetes BPH Urolitheal cancer Pneumonia [place] Depression UTI Opioid dependence COPD Medications Atorvastatin Benzonatate Buspirone Finasteride Gabapentin Loratadine Metoprolol Nitroglycerin Omeprazole Oxycodone Pantoprazole Senna Tamsulosin Trazodone Surgical History CABG Rotator cuff, right Lumbar laminectomy Hip arthroplasty, left Cystoscopy Physical Exam Patient Vitals for the past 24 hrs: BP Temp Temp src Pulse Resp SpO2 04/06/24 0023 (!) 143/81 -- -- 76 -- 99 % 04/05/24 2113 (!) 142/67 98.6 ??F (37 ??C) Temporal 72 18 97 % Physical Exam General: Alert and Interactive. Head: No signs of trauma. Mouth/Throat: Oropharynx is clear and moist. Eyes: Conjunctivae are normal. Pupils are equal, round, and reactive to light. Neck: Normal range of motion. No nuchal rigidity. CV: Normal rate and regular rhythm. Resp: Effort normal and breath sounds normal. No respiratory distress. Clear to auscultation bilaterally. GI: Soft. There is no tenderness or guarding. MSK: Normal range of motion. no edema. Neuro: The patient is alert and oriented to person, place, and time. PERRLA, EOMI, strength in upper/lower extremities normal and symmetrical. Sensation normal. Speech normal. GCS eye subscore is 4. GCS verbal subscore is 5. GCS motor subscore is 6. Skin: Skin is warm and dry. No rash noted. Psych: normal mood and affect. behavior is normal. Diagnostics Lab Results Labs Ordered and Resulted from Time of ED Arrival to Time of ED Departure INFLUENZA A/B, RSV, & SARS-COV2 PCR - Normal Result Value Influenza A PCR Negative Influenza B PCR Negative RSV PCR Negative SARS CoV2 PCR Negative Imaging Chest XR, PA & LAT Final Result IMPRESSION: Median sternotomy wires. No acute cardiopulmonary process. Stable cardiomediastinal silhouette. Independent Interpretation CXR: No infiltrate. ED Course Medications Administered Medications doxycycline hyclate (VIBRAMYCIN) capsule 100 mg (100 mg Oral $Given 04/06/24 002) oxyCODONE (ROXICODONE) tablet 10 mg (10 mg Oral $Given 04/06/24 002) Procedures Procedures Discussion of Management None ED Course ED Course as of 04/06/24 0041 ThuApr 06, 2024 0024 I obtained history and examined the patient as noted above. Additional Documentation None Medical Decision Making / Diagnosis [facility] Diagnoses: None MIPS None MDM Scott Ma is a 83 year old male who presents for evaluation of cough, headache and pharyngitis. This is consistent with an influenza like illness. The patient is out of treatment window for influenza and medications ordered as noted above. Patient understands the sensitivity of influenza rapid test. They are at risk for pneumonia but no signs of this are detected on today's visit. Close followup of primary care physician is indicated and return to the ED for high fevers > 103 for more than 48 hours more, increasing productive cough, shortness of breath, or confusion. There is no signs of serious bacterial infection such as bacteremia, meningitis, UTI/pyelonephritis, strep pharyngitis, etc.. Given the patient's history of COPD, he will be started on course of doxycycline. Disposition The patient was discharged. Diagnosis ICD-10-CM 1. Atypical pneumonia J18.9 2. Cough, unspecified type R05.9 Discharge Medications Discharge Medication List as of 04/06/2024 12:28 AM START taking these medications Details doxycycline monohydrate (MONODOX) 100 MG capsule Take 1 capsule (100 mg) by mouth every 12 hours for 7 days., Disp-14 capsule, R-0, E-Prescribe Scribe Disclosure: I, Rosa Burleson, am serving as a scribe at 12:24 AM on 04/06/2024 to document services personally performed by Chaz Mistry MD based on my observations and the provider's statements to me. Chaz Mistry MD 04/06/24 0519 * Hany Arora RN - 04/05/2024 9:12 PM CDT Images from the original note were not included. Patient presents with 3 days of productive cough and headache. Denies fevers. He reports hx of pneumonia and states this feels similar. Triage Assessment (Adult) Row Name 04/05/246 Triage Assessment Airway WDL WDL Respiratory WDL Respiratory WDL X;cough Cough Frequency frequent Cough Type productive Skin Circulation/Temperature WDL Skin Circulation/Temperature WDL WDL Cardiac WDL Cardiac WDL WDL Peripheral/Neurovascular WDL Peripheral Neurovascular WDL WDL Cognitive/Neuro/Behavioral WDL Cognitive/Neuro/Behavioral WDL WDL documented in this encounter Plan of Treatment Not on file documented as of this encounter Procedures Procedure Name Priority Date/Time Associated Diagnosis Comments XR CHEST 2 VIEWS STAT 04/05/2024 9:38 PM CDT INFLUENZA A/B, RSV, & SARS-COV2 PCR STAT 04/05/2024 9:16 PM CDT documented in this encounter Results * Chest XR, PA & LAT (04/05/2024 9:38 PM CDT) Anatomical Region Laterality Modality Chest Digital Radiogra phy 04/05/2024 9:38 PM CDT Impressions 04/05/2024 10:01 PM CDT IMPRESSION: Median sternotomy wires. No acute cardiopulmonary process. Stable cardiomediastinal silhouette. Narrative 04/05/2024 10:01 PM CDT EXAM: XR CHEST 2 VIEWS LOCATION: [facility] DATE: 04/05/2024 INDICATION: Productive cough COMPARISON: 08/01/2022 Procedure Note Tyree Ramos MD - 04/05/2024 EXAM: XR CHEST 2 VIEWS LOCATION: [facility] DATE: 04/05/2024 INDICATION: Productive cough COMPARISON: 08/01/2022 IMPRESSION: Median sternotomy wires. No acute cardiopulmonary process.Stable cardiomediastinal silhouette. Chaz Mistry MD IMG DIAGNOSTIC IMAGI NG ORDERABLES * Symptomatic Influenza A/B, RSV, & SARS-CoV2 PCR (COVID-19) Nasopharyngeal (04/05/2024 9:16 PM CDT) Pathologist [facility] Influenza A PCR Negative Negative 04/05/2024 10:05 [...] 9:16 PM CDT 04/05/2024 9:25 PM CDT Narrative LABORATORY - 04/05/2024 10:05 PM CDT Testing was performed using the Xpert Xpress CoV2/Flu/RSV Assay on the [employer] Instrument. This test should be ordered for [...] management. This test was validated by the [facility]. These laboratories are certified under the Clinical Laboratory Improvement Amendments of 1988 (CLIA-88) as qualified to perfom high complexity laboratory testing. Chaz Mistry MD LAB - MICRO GENERAL ORDERABLES LABORATORY [facility] Lab [address] 1[address], [address] [place] [address], [place] [phone] documented in this encounter Visit Diagnoses Diagnosis Atypical pneumonia Pneumonia, organism unspecified Cough, unspecified type documented in this encounter Administered Medications Inactive Administered Medications - up to 3 most recent administrations Medication Order MAR Action Action Date Dose Rate Site doxycycline hyclate (VIBRAMYCIN) capsule 100 mg STAT, 100 mg, Oral, ONCE, On Thu04/06/24 at 0020, For 1 dose, Administer at least 2 hours before or after aluminum, calcium, iron, zinc or magnesium containing products., Indications: Community Acquired Pneumonia $Given 04/06/2024 12:22 AM CDT 100 mg oxyCODONE (ROXICODONE) tablet 10 mg 10 mg, Oral, ONCE, On Thu04/06/24 at 0020, For 1 dose $Given 04/06/2024 12:22 AM CDT 10 mg documented in this encounter Active and Recently Administered Medications Times are shown in CDT. Scheduled Medication Order 04/04/2024 04/05/2024 04/06/2024 doxycycline hyclate (VIBRAMYCIN) capsule 100 mg (COMPLETED) STAT, 100 mg, Oral, ONCE, On Thu04/06/24 at 0020, For 1 dose, Administer at least 2 hours before or after aluminum, calcium, iron, zinc or magnesium containing products., Indications: Community Acquired Pneumonia 0022 ($Given - Provi barbara: Estee Barragan RN) oxyCODONE (ROXICODONE) tablet 10 mg (COMPLETED) 10 mg, Oral, ONCE, On Thu04/06/24 at 0020, For 1 dose 0022 ($Given - Provi barbara: Estee Barragan RN) documented in this encounter Additional Health Concerns Infection Onset Date Last Indicated Resolved Time Rule Out COVID-19 04/05/2024 04/05/2024 04/05/2024 10:05 PM CDT documented as of this encounter Care Teams Liquor Merchant Relationship Specialty Start Date End Date Saqib Horowitz [address] [place] [address] PCP - General Family Medicine 11/07/22 documented as of this encounter
--- OUTSIDE RECORDS SUMMARY | 2024-04-23 10:02 | XMS_ITS | Encounter Summary ---
Author Organization [place] Address [facility] [place] [address] Care Team Providers Care Product Tester Fiberglass Name Role Phone Camelia, Iftikhar Hu Primary Care Provider VoteShabana bright Primary Care Provider [phone] Laura Arnold MD Unavailable VoteShabana bright Primary Care Provider [phone] Encounter Details Date Type Department Care Team (Late st Contact Info) Description 12/02/2012 Office Visit-[facility] [place] [address] [place] [address] Jeremy Starr MD [address] [facility] [address] [place] [id number] Social History Tobacco Use Types Packs/Day Years Used Date Smoking Tobacco: Former Alcohol Use Standard Drinks/Week Comments Yes 0 (1 standard drink = 0.6 oz pur e alcohol) 1 nanci daily Sex and Gender Information Value Date Recorded Sex Assigned at Not on file Gender Identity Not on file Sexual Orientation Not on file documented as of this encounter Progress Notes * Jeremy Starr MD - 12/08/2012 3:32 PM CDT Progress Note Created by: Jeremy Starr M.D. DATE: 12/02/2012 KEVON ANDERSEN DATE OF : 1940 AGE: [age] years old Referring Physician: SHABANA CHENG Referring Clinic: [facility] CURRENT DIAGNOSES 1. - Hyperlipidemia mixed, 272.2 2. - CAD, 414.00 3. - Atrial Fibrillation, 427.31 4. Sleep apnea, 786.09 5. - CABG, V45.81 6. Syncope, 780.2 ALLERGIES Penicillin Antibiotic, Extended-spectrum & Beta-lactamase Inhib. Comb Penicillin Natural Antibiotic Combinations - Extended Release MEDICATIONS (prior to changes made today) 1. aspirin, buffered 81 mg tablet, 1 p.o. daily has not started 2. betamethasone dipropionate 0.05 % Cream, as Directed 3. Flexeril 10 mg Tablet, 1 p.o. twice daily 4. lisinopril 2.5 mg tablet, 1 p.o. qHS 5. metoprolol tartrate 25 mg Tablet, 1/2 tab twice daily 6. omeprazole 40 mg Capsule, Delayed Release(E.C.), 1 p.o. daily 7. oxycodone 5 mg Tablet, Take as Directed 8. Ranexa 500 mg tablet extended release 12 hr, 1 p.o. twice daily 9. Senna-Gen 8.6 mg tablet, 1 p.o. daily 10. simvastatin 40 mg Tablet, 1 p.o. qHS 11. trazodone 150 mg Tablet, 1 p.o. qHS CHIEF COMPLAINTS HISTORY OF PRESENT ILLNESS It is my pleasure to see your patient, Kevon Andersen, a very pleasant 72-year-old patient who has been followed by Dr. Todd in the past. He was most recently seen by Dr. Michael in consultation [facility] when he had a syncopal episode. As you well know, this patient had three vessel coronary artery bypass performed in December of 2011. He had a left internal mammary artery to his left anterior descending and he had separate saphenous vein grafts to the posterior descending artery and posterolateral artery. He was having some occasional left chest tightness and because of that on July 19 he underwent coronary angiography, which showed that the left internal mammary artery was patent to the left anterior descending, there was moderate disease in the ostium of an obtuse marginal artery, which was 75 to 80%, the vein graft to posterior descending artery looks normal with no downstream disease. The vein graft to the posterolateral artery had an ostial 70% stenosis with no damping of the catheter. So it was felt that the chest discomfort most likely was not angina pe ctoris, however, Dr. Cantu did place the patient on Ranexa. Mr. Andersen was, as I said, seen by Dr. Michael on November 01, which was approximately one month ago for a syncopal episode. Nothing abnormal was found on clinical examination. He did have an event monitor placed. The only abnormality was a short run of supraventricular tachycardia, which was entirely asymptomatic. There was no evidence of ventricular tachyarrhythmias and no evidence of high-grade conduction system disease. The patient still has some chest discomfort. It sounds distinctly noncardiac. The discomfort can occur at rest, it can occur with exertion, it can occur when he is sitting down, quite frequently it can be worsened by turning onto his left side. This is the same discomfort that he had when he had the coronary angiogram. His lipids look reasonably good and these were drawn on November 01. His LDL was 40, his HDL was mildly reduced at 30 and his triglycerides were mildly raisedat 180. His blood pressure is well controlled. He does notice, however, that if he gets up too quickly he can get dizzy so he does sit at the edge of the bed before he gets up so his blood pressure equilibrates. PAST HISTORY Past Medical Illnesses: GERD, History [...] Cardiology Procedures-NonInvasive: echocardiogram December 2011, January 2012 Vascular Procedures-Noninvasive: CUS 10/2012 Pulmonary Testing: CXR December 2011 Cardiac Cath Results: 12/12 Distal RCA involving crux 95%, PDA 95%, Proximal distal large posterolateral branch 90%, Mid and distal RCA 50-60%. Proximal LAD approx. 50- 60%, is a focal not hazy 95% stenosis in mid LAD. Left CFX-OM 80%,ostium of CFX 50%.Recommend bypass Peripheral Vasc Procedure Results: 2012 CUS 50-69% bilat internal carotid stenosis PMHx Echo Results: 12/12 LVSF is normal, [...] Family - strong family history of CAD; CARDIAC RISK FACTORS Tobacco Abuse: used to smoke, but quit, 1981; Family History of Heart Disease: Positive, strong family hx of CAD; Hyperlipidemia: positive; Hypertension: negative; Diabetes Mellitus: negative; Prior History of Heart Disease: negative, 12/12 DX CAD, pt had CABG ; LDL Goal <LT> 70 SOCIAL HISTORY Alcohol Use - drinks regularly 1 per day; Smoking - used to smoke but quit and 1982; Diet - regulardiet without modifications and cut down on sugar; Exercise - some exercise and walking/stairs; SeatBelt Use - always; Residence - lives alone; REVIEW OF SYSTEMS GENERAL weight gain, approx 7 lbs, positive for fatigue, no change in appetite INTEGUMENTARY denies any change in hair or nails, rashes, or skin lesions. EYES reading glasses only EARS, NOSE, THROAT, MOUTH hearing aide(s) left ear RESPIRATORY dyspnea with exertion somewhat CARDIOVASCULAR chest pain not everyday per pt, tingling in chest everyday , has left shoulder pain that goes down arm - notices it more while laying down, BP - has been high lately per pt, leg pains, dizziness, sometimes ABDOMINAL history of GERD MUSCULOSKELETAL History of chronic pain syndrome ( Chronic low back pain), hurt right wrist - from a fall, leg pains NEUROLOGICAL denies any history of recurrent headaches, strokes, TIA, or seizure disorder. PSYCHIATRIC sleep disturbance, Chronic insomnia ENDOCRINE borderline, was told he was diabetic - no meds PHYSICAL EXAMINATION VITAL SIGNS: Blood Pressure: 126/72Sitting, Right arm, large cuff Pulse- 65.00/min. Weight- 188.50 lbs. Height- 71.00 BMI Measurement: 26 CONSTITUTIONAL well developed, well nourished, in no [...] clubbing, cyanosis or edema MEDICATIONS UPDATED/STARTED TODAY: lisinopril 2.5 mg tablet, 1 p.o. qHS, #30 (Thirty) Ranexa 500 mg tablet extended release 12 hr, 1 p.o. twice daily, #0 (Zero) Senna-Gen 8.6 mg tablet, 1 p.o. daily, #0 (Zero) IMPRESSION: 1. Chest pain, this sounds noncardiac in that it does not have a distinct relationship to exertion.It is somewhat different from the pain that he had prior to his bypass surgery. 2. Coronary artery disease. He is status post coronary artery bypass grafting and does appear to have a 70% stenosis inthe vein graft to the posterolateral artery. This was felt not to be flow limiting. The other grafts are wide open with no downstream disease. 3. Hyperlipidemia. This appears to be well controlled, though he does have mild HDL deficiency and mild hypertriglyceridemia. 4. Syncope. There has been no recurrence of the syncope since he was seen in the hospital and event monitoring does not show any evidence of high-grade conduction system discomfort or ventricular dysrhythmia. He had a short run ofasymptomatic paroxysmal supraventricular tachycardia, which I doubt has anything to do with his syncope. 5. He is not on an RENEE inhibitor and should be given that he has coronary artery disease. PLAN: 1. At this stage I will continue to observe him. I would not perform any other investigations looking for syncope. 2. I would start him on lisinopril 2.5 mg at nighttime and check a basic metabolic panel in one week's time. 3. I will have the patient follow-up in six month's time. I have not ordered a stress nuclear scan, which I typically would do, or stress echocardiography, since the patient tells me that both of these studies in his particular case failed to detect ischemia even when he hadsevere coronary artery disease. It certainly has been a pleasure being involved in the care of this very nice patient. TODAYS ORDERS 1. Return Visit 6 months 2. Lipid profile/ALT 6 months 3. BMP 1 week Jeremy Starr M.D. documented in this encounter Plan of Treatment Not on file documented as of this encounter Visit Diagnoses Not on filedocumented in this encounter Additional Health Concerns Infection Onset Date Last Indicated Resolved Time Rule Out COVID-19 07/05/2022 07/05/2022 07/05/2022 11:06 AM PRODUCT PICKER Influenza 07/05/2022 07/05/2022 07/12/2022 11:4 0 PM PRODUCT PICKER Rule Out COVID-19 04/05/2024 04/05/2024 04/05/2024 10:05 PM CDT documented as of this encounter Care Teams Product Tester Fiberglass Relationship Specialty Start Date End Date Clinic, [facility] [place] [address] [place] [address] PCP - General 01/12/12 11/19/14 Shabana Cheng [address] [place] [address] PCP - General Family Practice 11/20/14 11/06/22 Shabana Cheng [address] [place] [address] PCP - General Family Medicine 11/07/22 Laura Arnold MD [address] [place] [id number] Assigned Surgical Provider 05/10/22 documented as of this encounter
--- OUTSIDE RECORDS SUMMARY | 2024-04-23 10:02 | XMS_ITS | Encounter Summary ---
Author Organization [place] Address [facility]0 [facility] [place] [address] Care Team Providers Care Scarifier Operator Name Role Phone Camelia, Iftikhar Hu Primary Care Provider VotelSaqib Primary Care Provider [phone] Laura Arnold MD Unavailable Votel, Saqib Negron Primary Care Provider [phone] Encounter Details Date Type Department Care Team (Late st Contact Info) Description 01/21/2012 Office Visit-[facility] [place] [address] [facility] [address] [place] [address] Rebecca Curiel APRN [facility] [address] [facility] [address] [place] [id number] Social History Tobacco Use Types Packs/Day Years Used Date Smoking Tobacco: Former Alcohol Use Standard Drinks/Week Comments Yes 0 (1 standard drink = 0.6 oz pur e alcohol) 1 nanci daily Sex and Gender Information Value Date Recorded Sex Assigned at Not on file Gender Identity Not on file Sexual Orientation Not on file documented as of this encounter Progress Notes * Rebecca Curiel NP - 01/23/2012 2:29 PM CDT Progress Note Created by: Rebecca Curiel N.PJosiah [id number] DATE: 01/21/2012 KEVON ANDERSEN DATE OF : 1940 AGE: [age] years old Referring Physician: BERNY TORRES Referring Clinic: [facility] CURRENT DIAGNOSES 1. - Hyperlipidemia mixed, 272.2 [...] made today) 1. aspirin, buffered 81 mg Tablet, 1 p.o. daily 2. betamethasone dipropionate 0.05 % Cream, as Directed 3. Flexeril 10 mg Tablet, 1 p.o. twice daily 4. metoprolol tartrate 25 mg Tablet, 1/2 tab twice daily 5. omeprazole 40 mg Capsule, Delayed Release(E.C.), 1 p.o. daily 6. oxycodone 5 mg Tablet, Take as Directed 7. simvastatin 40 mg Tablet, 1 p.o. qHS 8. trazodone 150 mg Tablet, 1 p.o. qHS 9. warfarin 5 mg Tablet, Take as Directed CHIEF COMPLAINTS Followup of s/p CABG HISTORY OF PRESENT ILLNESS: This is a delightful 71-year-old male who presents to the [facility] today for a follow-up visit. He is a patient of Dr. Todd seen in our clinic for a past medical history of: Coronary artery disease, hypertension, tobacco abuse, alcohol use and HDL deficiency. Kevon has lived a fairly healthy life, however, in December of this year he was admitted to the hospitalwith progressive angina that had been ongoing for two months. He did rule-out for myocardial infarction, but went on to undergo coronary angiography revealing significant multivessel disease. He was noted to have right coronary artery, posterior descending artery disease and moderate left anterior descending disease along with significant obtuse marginal disease. He was noted to have preserved left ventricular function. He was transferred to [facility] and on December 16, 2011, did undergo coronary artery bypass grafting with a left internal mammary artery to his left anterior desc ending, saphenous vein graft to the posterior descending artery and NORA. Echocardiogram showed preserved left ventricular function with trace mitral regurgitation. He tolerated this procedure well. There was some postprocedure paroxysmal atrial fibrillation early following his surgery and he was started on amiodarone. He was also started on Coumadin therapy for cerebrovascular accident prophylaxis. He does live in [place] and his INRs are being managed by the [employer] system. Unfortunately he was readmitted to [facility] last week with complaints of positional dizziness and weakness. He also admitted to some sharp chest discomfort. He did rule-out for myocardial infarction. There was some evidence of orthostatic hypotension. It was felt that his light- headedness was relatedto volume depletion, poor oral intake, medication related and deconditioning. He was given some intravenous fluids and asked to have his metoprolol dose lowered. It had been four weeks since surgery.He did remain in sinus rhythm the entire time and his amiodarone was discontinued with some thoughtof intolerance to this medication. He underwent repeat echocardiogram, which showed no significant change. Again he was noted to have preserved left ventricular function. He was discharged to home instable condition. He returns today for reassessment. Kevon tells me he is doing well. He is participating in cardiac rehab phase 2. He does admit to some positional light-headedness, but this has gotten better. His appetite is still poor and he is aware that his caloric intake is low. He also only drinks about 16 ounces of fluid a day. He is back to drinking one drink a night of nanci. He tells me last night he substituted his nanci for food. He denies any palpations, light-headedness or dizziness with walking. He denies near syncope. He continues to have some sharp pain in his chest with movement that he feels is related to his incision. He has no exertional chest pain or shortness of breath. He denies orthopnea, paroxysmal nocturnal dyspnea or peripheral edema. Reviewing medications with him today it appears he has been taking lisinopril 5 mg daily along withhis metoprolol dose. We were unaware of this. His blood pressure today is 90/58 with a heart rate of 92 beats per minute. His lungs are clear. There is no evidence of any jugular venous distention or peripheral edema. His incision appears to be healing well. He tells me he has been on narcotics for chronic back pain for a number of years. He is concerned that he is running out of his narcotic prescription. Further review of systems and physical examination as noted below. PAST HISTORY Past Medical Illnesses: GERD, History of chronic pain syndrome ( Chronic low back pain), Chronic insomnia, hyperlipidemia Past Cardiac Illnesses: coronary artery disease, 12/12 ACS Cardiac and Vascular Surgeries: CABG 12/15, triple vessel coronary artery bypass Bypass Graft Anatomy: 12/15 left internal mammary artery to left anterior [...] - lives alone; REVIEW OF SYSTEMS GENERAL decreased energy EYES reading glasses only EARS, NOSE, THROAT, MOUTH hearing aide(s) left ear RESPIRATORY dyspnea with exertion CARDIOVASCULAR dizziness, chest pain all the time ABDOMINAL history of GERD MUSCULOSKELETAL History of chronic pain syndrome ( Chronic low back pain) NEUROLOGICAL denies any history of recurrent headaches, strokes, TIA, or seizure disorder. PSYCHIATRIC sleep disturbance, Chronic insomnia ENDOCRINE borderline PHYSICAL EXAMINATION VITAL SIGNS: Blood Pressure: 90/58Sitting, Right arm, regular cuff Pulse- 92.00/min. Weight- 175.30 lbs. Height- 71 BMI Measurement: 24 CONSTITUTIONAL well developed, well nourished, in no [...] clubbing, cyanosis or edema MEDICATIONS UPDATED/STARTED TODAY: MEDICATIONS REFILLED/STOPPED TODAY: bisacodyl 10 mg Suppository Take as Directed #0 (Zero) Patient Terminated, lisinopril 5 mg Tablet 1p.o. daily #0 (Zero) Physician Order and Mylanta Maximum Strength 400-400-40 mg/5 mL Suspension Take as Directed #0 (Zero) Patient Terminated IMPRESSION/PLAN: 1. Coronary artery disease. Due to unstable angina he underwent three vessel coronary artery bypassgrafting with a left internal mammary artery to his left anterior descending and saphenous vein graft to the posterior descending artery and NORA on December 16, 2011. He has yet to meet back with the surgeon. He appears to be free from any anginal symptoms and healing well. He has some hearing issues and we will help get him in with the surgeon through our office today. 2. Preserved left ventricular function. There are no signs or symptoms of heart failure. 3. Positional light-headedness. His blood pressure is on the low side. I have asked him to stop his lisinopril dose and continue with low dose metoprolol twice daily. 4. Paroxysmal atrial fibrillation. He remained in sinus rhythm during the hospitalization last week. His amiodarone dose has been discontinued. He is on Coumadin therapy for cerebrovascular accident prophylaxis. He denies palpations. One could consider discontinuing warfarin therapy at next office visit and meeting with Dr. Todd in a few months if he remains in regular rhythm. 5. Remote history of tobacco abuse. 6. Poor nutritional intake. I did encourage increasing his fluids and protein in his diet. Again I have asked him to avoid alcohol as much as possible and try not to substitute that for nutrition. Thank you for allowing me to participate in this patient's care. We will have him return in follow-up as planned. He is to notify our clinic with chest discomfort, shortness of breath, light-headedness, dizziness or other concerns that he may have during the interim. TODAYS ORDERS Rebecca Curiel N.Yamileth. documented in this encounter Plan of Treatment Not on file documented as of this encounter Visit Diagnoses Not on filedocumented in this encounter Additional Health Concerns Infection Onset Date Last Indicated Resolved Time Rule Out COVID-19 07/05/2022 07/05/2022 07/05/2022 11:06 AM TIRE RECAPPER Influenza 07/05/2022 07/05/2022 07/12/2022 11:4 0 PM TIRE RECAPPER Rule Out COVID-19 04/05/2024 04/05/2024 04/05/2024 10:05 PM CDT documented as of this encounter Care Teams Scarifier Operator Relationship Specialty Start Date End Date [facility] [address] [place] [address] PCP - General 01/12/12 11/19/14 Saqib Horowitz [address] [place] [address] PCP - General Family Practice 11/20/14 11/06/22 Saqib Horowitz [address] [place] [address] PCP - General Family Medicine 11/07/22 Laura Arnold MD [address] [place] [id number] Assigned Surgical Provider 05/10/22 documented as of this encounter
--- OUTSIDE RECORDS SUMMARY | 2024-04-23 10:02 | XMS_ITS | Clinical Summary ---
Author Organization [facility] Address [address] [place] [address] Care Team Providers Care Hospice Physician Name Role Phone Found, No Pcp MD Primary Care Provider Unavailab le Source Comments You are receiving this document as you are listed as the primary care provider,follow-up provider, or the patient has been referred to you for consultation.This is in compliance with the Medicare andMedicaid EHR Incentive Program,which states Providers who transition their patient to another setting of careor provider of care or refers their patient to another provider of care shouldprovide summary care record for each transition of care or referral. [employer] Allergies Active Allergy Reactions Criticality Noted Date Comments Penicillins Other, see comments 07/11/2015 PN: Unknown reaction Medications Medication Sig Dispensed Refills Start Date End Date Status STOOL SOFTENER & LAXATIVE OR Take 1 tablet by mouth 2 times daily. 07/11/2015 Active metoPROLOL succinate (aka topROL XL) extended release tablet Take 50 mg by mouth 2 times daily. 07/11/2015 Active Oxycodone-Acetaminoph en (aka PERCOCET) 7.5-325 MG TABS Take 1 tablet by mouth every 4 hours as needed for Pain. maximum 12 tablets/24 hours 07/11/2015 Active traZODone HCl (aka (DESYREL)) extended release tablet Take by mouth. 07/11/2015 Active omeprazole (aka PRILOSEC) delayed release capsule Take 40 mg by mouth daily (every 24 hours). 07/11/2015 Active cyclobenzaprine (aka FLEXERIL) tablet Take 5 mg by mouth 2 times daily as needed for Muscle spasms. 07/11/2015 Active lisinopril (aka zeSTRIL) tablet Take 10 mg by mouth daily (every 24 hours). 07/11/2015 Active atorvastatin (aka LIPITOR) tablet Take 40 mg by mouth daily (every 24 hours). 07/11/2015 Active nitroglycerin (aka NITROSTAT) sublingual tablet Place 0.4 mg under the tongue every 5 minutes as needed for Chest pain. If no relief within 5 minutes call 911. 07/11/2015 Active aspirin EC enteric coated tablet Take 81 mg by mouth daily (every 24 hours). 07/11/2015 Active oxyCODONE (aka ROXICODONE) tablet Take 5 mg by mouth every 6 hours as needed for Pain. 07/11/2015 Active Menthol (Topical Analgesic) 5 % PADS Apply topically. 07/11/2015 Active oxyCODONE-acetaminoph en (aka PERCOCET) 5-325 MG tablet Take 1 tablet by mouth every 6 hours as needed for Pain. Maximum 12 tablets/24 hours Indications: PAIN 35 tablet 0 07/11/2015 Active Social History Tobacco Use Types Packs/Day Years Used Date Smoking Tobacco: Former Sex and Gender Information Value Date Recorded Sex Assigned at Not on file Gender Identity Not on file Sexual Orientation Not on file Last Filed Vital Signs Vital Sign Reading Time Taken Comments Blood Pressure 103/63 07/11/2015 3:21 PM ADAPTED PHYSICAL EDUCATION AIDE Pulse 79 07/11/2015 3:21 PM ADAPTED PHYSICAL EDUCATION AIDE Temperature 36.6 ??C (97.9 ??F) 07/11/2015 3:21 PM CS T Respiratory Rate 18 07/11/2015 3:21 PM ADAPTED PHYSICAL EDUCATION AIDE Oxygen Saturation 94% 07/11/2015 3:21 PM ADAPTED PHYSICAL EDUCATION AIDE Inhaled Oxygen Concentration - - Weight - - Height - - Body Mass Index - - Plan of Treatment Health Maintenance Due Date Last Done Comments Adult Preventive Visit 1958 DTaP/Tdap/Td (1 - Tdap) 1960 Zoster/Shingles (1 of 2) 1991 Pneumococcal 65+ Yrs (1 - PCV) 2006 RSV (1 - 1-dose 75+ series) 2016 COVID-19 Vaccine ( - 2023-2 5 season) 2024 Influenza (#1) 2024 HepA Aged Out No longer eligi ble based on patient's age to complete this topic HepB Aged Out No longer eligi ble based on patient's age to complete this topic Hib Aged Out No longer eligi ble based on patient's age to complete this topic IPV (Polio) Aged Out No longer eligi ble based on patient's age to complete this topic MCV4 Aged Out No longer eligi ble based on patient's age to complete this topic Care Teams Hospice Physician Relationship Specialty Start Date End Date Found, No Pcp, [address] [place] [address] PCP - General 07/12/15
--- OUTSIDE RECORDS SUMMARY | 2024-04-23 10:02 | XMS_ITS | Encounter Summary ---
Author Organization [facility] Address [address] [place] [address]. [place] [address] Care Team Providers Care Vice President Marketing & Development Name Role Phone VotelSaqib Primary Care Provider [phone] Encounter Details Date Type Department Care Team (Latest Contact Info) Description 04/05/2024 Travel Social History Tobacco Use Types Packs/Day Years [...] on file documented as of this encounter Plan of Treatment Not on file documented as of this encounter Visit Diagnoses Not on filedocumented in this encounter Additional Health Concerns Infection Onset Date Last Indicated Resolved Time Rule Out COVID-19 04/05/2024 04/05/2024 04/05/2024 10:05 PM CDT documented as of this encounter Care Teams Vice President Marketing & Development Relationship Specialty Start Date End Date VotelSaqib [address] [place] [address] PCP - General Family Medicine 11/07/22 documented as of this encounter
--- OUTSIDE RECORDS SUMMARY | 2024-04-23 10:02 | XMS_ITS | Encounter Summary ---
Author Organization [facility] Address [address] [place] [address]. [place] [address] Care Team Providers Care Vocational Rehabilitation Technician Name Role Phone Camelia, Iftikhar Hu Primary Care Provider VoteSaqib bright Primary Care Provider [phone] Laura Arnold MD Unavailable VoteSaqib bright Primary Care Provider [phone] Encounter Details Date Type Department Care Team (Late st Contact Info) Description 02/05/2012 Office Visit-P INTERFACE P DEPT Dean Massey MD [place] [address] Social History Tobacco Use Types Packs/Day Years Used Date Smoking Tobacco: Former Alcohol Use Standard Drinks/Week Comments Yes 0 (1 standard drink = 0.6 oz pur e alcohol) 1 nanci daily Sex and Gender Information Value Date Recorded Sex Assigned at Not on file Gender Identity Not on file Sexual Orientation Not on file documented as of this encounter Progress Notes * Dean Massey MD - 02/05/2012 2:00 PM CDT Back Roll Lathe Operator: Dean Massey Status: Final - Signature Encounter: 2012-02-05 14:00:00.000 Type: CV Surgery Letter Department of Surgery Division of Cardiovascular and Thoracic Surgery [place] Mail Code [address] [place] [address] [address] [facility] Cardiothoracic Surgery [address] [place] [address] February 05, 2012 Abbey Coronel MD [facility] [address] Kris Todd [facility] [address] [place] [address] [facility] [address] [place] [address] RE: Scott Ma : MICHELE: 02/05/2012 Dear Doctors: Mr. Ma returned to the office today for postoperative followup visit. This 71-year-old gentleman presented with intermittent chest pain for 2 months. He was transferred from [facility] to [facility]. At the time he was seen in the emergency department. He underwent coronary angiography which showed severe 3-vessel coronary artery disease. On December 16, 2011, he underwent urgent triple vessel coronary bypass grafting including internal mammary artery bypass to the LAD, reverse saphenous vein graft to the right posterior descending and right posterior lateral coronary arteries. The patient subsequently was discharged after a hospital course that was complicated by atrial fibrillation requiring amiodarone with no recurrence. The patient was diuresed to his baseline weight. He has attended one cardiac outpatient rehabilitation session but felt that it was a waste of time and has not returned. He complains of some episodes of dizziness which he ascribes to his Coumadin. Heis being seen in followup in another [address] Todd and in the meantime is re- establishing connections with a primary care provider. Examination today shows him to be robust and healthy appearing. His blood pressure is 120/70, heartrate is 90, respiratory rate are 18 and unlabored. His sternotomy incision is well healed and stable. Heart is regular without murmurs, rubs, or gallops. There is no peripheral cyanosis or edema. Hislungs are clear bilaterally. Mr. Ma appears to be doing well. I have renewed a prescription for Percocet 7.5/325, 30 tablets, with no refills, which he uses half a tablet at a time primarily for back pain. In addition we have renewed a Coumadin prescription. He is apparently being followed and medications adjusted on an outpatient basis by a nurse clinician. All in all he appears to be doing well. I did reinforce his sternotomy precautions for at least another month. Thanks for the opportunity to participate in his care. Let us know if we can be of any further help. Sincerely, Dean Massey MD Department of Surgery [id number] Electronically signed by:Dean Massey M.D. Feb 17 2012 6:19PM ASSISTANT OFFSET PRESS OPERATOR documented in this encounter Plan of Treatment Not on file documented as of this encounter Visit Diagnoses Not on filedocumented in this encounter Additional Health Concerns Infection Onset Date Last Indicated Resolved Time Rule Out COVID-19 07/05/2022 07/05/2022 07/05/2022 11:06 AM ASSISTANT OFFSET PRESS OPERATOR Influenza 07/05/2022 07/05/2022 07/12/2022 11:4 0 PM ASSISTANT OFFSET PRESS OPERATOR Rule Out COVID-19 04/05/2024 04/05/2024 04/05/2024 10:05 PM CDT documented as of this encounter Care Teams Vocational Rehabilitation Technician Relationship Specialty Start Date End Date [facility] [address] [place] [address] PCP - General 01/12/12 11/19/14 Saqib Horowitz [address] [place] [address] PCP - General Family Practice 11/20/14 11/06/22 Saqib Horowitz [address] [place] [address] PCP - General Family Medicine 11/07/22 Laura Arnold MD [address] [place] [id number] Assigned Surgical Provider 05/10/22 documented as of this encounter
[2024-04-23 10:50] LABS: Basophils Absolute Auto 0.05 K/uL (0.00-0.30); Eosinophils Absolute Auto 0.12 K/uL (0.00-0.50); Eosinophils Percent Auto 2.3 % (0.0-7.0); Hematocrit 37.2 % (37.0-53.0); Hemoglobin* 12.4 gm/dL (13.5-17.5); Immature Granulocytes Abs Auto 0.01 K/uL (0.00-0.30); Immature Granulocytes Pct Auto 0.2 %; Lymphocytes Percent Auto 16.7 % (20-44); Mean Corpuscular HGB Conc 33 gm/dL (32-36); Mean Corpuscular Hemoglobin 32 pg (26-34); Mean Corpuscular Volume 97 fL (80-100); Monocytes Percent Auto 15.1 % (0.0-11.0); Neutrophils Absolute Auto 3.33 K/uL (1.7-7.0); Neutrophils Percent Auto 64.7 % (42.0-72.0); Platelet Count* 169 K/uL (140-440); RDW Coefficient of Variation % 12.7 % (11.5-15.5); Red Blood Count 3.85 m/uL (4.30-5.90); White Blood Count* 5.15 K/uL (4.50-11.00)
[2024-04-23 11:07] LABS: Slide Review Reflex No
[2024-04-23 11:17] LABS: Chloride* 108 mmol/L (96-114); Sodium* 138 mmol/L (135-149)
[2024-04-23 11:18] LABS: Potassium* 4.2 mmol/L (3.6-5.1)
[2024-04-23 11:20] LABS: Est. Creatinine Clearance* 60.66; Estimated Glomerular Filt Rate 75 ml/min
[2024-04-23 11:21] LABS: Anion Gap 6 mEq/L (7-15); Blood Urea Nitrogen* 14 mg/dL (7-30); Calcium* 8.8 mg/dL (8.4-10.6); Carbon Dioxide* 24 mmol/L (20-32); Glucose* 112 mg/dL (60-115)
[2024-04-23 11:24] LABS: C Reactive Protein* < 0.5 mg/dL (0.5-1.0)
== END 2024-04-23 11:59 | disposition home or self-care (01) ==
PROVIDERS: Emergency Provider Family Medicine; PCP Family Medicine
DX: R05.9 Cough, unspecified (principal)
CPT/HCPCS: 36415; 70450; 71046; 80048; 85025; 86140; 99284; 99285

== ENCOUNTER 2024-12-20 13:47 | Outpatient (CLI) | payer OTHER, SELFPAY | END 2024-12-20 13:48 | disposition home or self-care (01) | LOC: INJ CL 13:50 | PROVIDERS: PCP Family Medicine; Visit Provider Family Medicine | DX: M17.11 Unilateral primary osteoarthritis, right knee (principal); M25.561 Pain in right knee | CPT/HCPCS: 64454 ==

== ENCOUNTER 2025-01-17 11:53 | Outpatient (CLI) | payer OTHER, SELFPAY | END 2025-01-17 11:54 | disposition home or self-care (01) | LOC: INJ CL 11:54 | PROVIDERS: PCP Family Medicine; Visit Provider Family Medicine | DX: M17.11 Unilateral primary osteoarthritis, right knee (principal); M25.561 Pain in right knee; G89.29 Other chronic pain | CPT/HCPCS: 64624; J2250; J3010 ==